=== PATIENT | male | born 1965 | race American Indian/Alaskan Native ===

== ENCOUNTER 2022-04-16 14:55 | Outpatient (CLI) | payer OTHER, SELFPAY ==
--- NOTE | 2022-04-16 16:11 | CRLHL7_ITS ---
For Patients: As a result of the Century Cures Act, medical imaging exams and procedure reports are released immediately into your electronic medical record. You may view this report before your referring provider. If you have questions, please contact your health care provider. INDICATION: Left lower quadrant abdominal pain COMPARISON: None TECHNIQUE: CT examination of the abdomen and pelvis was performed following the uneventful intravenous administration of 93 cc of Isovue 370. Thin section axial images were obtained from the lung bases through the pubic symphysis. Oral contrast was not administered. Please note that all CT scans at this facility use dose modulation, iterative reconstruction, and/or weight-based dosing when appropriate to reduce radiation dose to as low as reasonably achievable. FINDINGS: LUNG BASES: The lung bases as visualized appear normal.The heart size is normal at the lung bases. LIVER/BILIARY SYSTEM:The liver is normal in size and peripheral mixed density lesion in the right probably represents measuring 2 centimeters. This is not entirely characteristic and recommend I recommend this be confirmed by sonography of the non mass is certainly in the acute care setting. The gallbladder is contracted but otherwise unremarkable ADRENALS: Normal KIDNEYS, URETERS and BLADDER:The kidneys appear normal. No visible mass, calculus or hydronephrosis. The ureters and bladder as visualized appear normal. SPLEEN:Normal appearance. PANCREAS: Appears normal. RETROPERITONEUM and MESENTERY: There is no mass, adenopathy or aortic aneurysm. Atherosclerotic vascular calcifications GASTROINTESTINAL SYSTEM: Diverticulosis. Findings of acute uncomplicated diverticulitis at the junction of the descending colon with the sigmoid colon. PELVIS: No mass, adenopathy or free fluid.Mildly prominent prostate OSSEOUS STRUCTURES and ABDOMINAL WALL: There is an age-appropriate appearance of the osseous structures.No significant abdominal wall defect. OTHER: No free fluid or free air. IMPRESSION: 1. Acute uncomplicated diverticulitis of the descending colon at its junction with the sigmoid colon. 2. Indeterminate hepatic lesion favor a hemangioma. Recommend confirmation by sonography though not necessarily in the acute care setting. . Please note that all CT scans at this facility use dose modulation, iterative reconstruction, and/or weight-based dosing when appropriate to reduce radiation dose to as low as reasonably achievable. Dictated by Berlin Scanlon MD @ 04/16/2022 5:47:41 PM (Electronically Signed)
[2022-04-16 21:15] LABS: Basophils Percent Auto 0.7 % (0.0-3.0); Eosinophils Percent Auto 0.9 % (0.0-7.0); Hematocrit 43.6 % (37.0-53.0); Hemoglobin* 14.5 gm/dL (13.5-17.5); Immature Granulocytes Abs Auto 0.08 K/uL (0.00-0.30); Lymphocytes Percent Auto 28.1 % (20-44); Mean Corpuscular HGB Conc 33 gm/dL (32-36); Mean Corpuscular Hemoglobin 30 pg (26-34); Mean Corpuscular Volume 89 fL (80-100); Monocytes Percent Auto 7.6 % (0.0-11.0); Platelet Count* 333 K/uL (140-440); RDW Coefficient of Variation % 13.1 % (11.5-15.5); Red Blood Count 4.88 m/uL (4.30-5.90); White Blood Count* 12.29 K/uL (4.50-11.00)
[2022-04-16 21:17] LABS: Appearance Urine Clear (Clear); Bilirubin Urine Negative (Negative); Blood Urine 2+ (Negative); Color Urine Yellow (Yellow); Glucose Urine Negative (Negative); Ketones Urine Negative (Negative); Leukocyte Esterase Urine Negative (Negative); Nitrite Urine Negative (Negative); Protein Urine Negative (Negative); Specific Gravity Urine 1.025 (1.000-1.030); Urobilinogen Urine 0.2 (0.2-1.0)
[2022-04-16 21:43] LABS: Chloride* 105 mmol/L (96-114); Sodium* 138 mmol/L (135-149)
[2022-04-16 21:44] LABS: Potassium* 4.1 mmol/L (3.6-5.1)
[2022-04-16 21:46] LABS: Estimated Glomerular Filt Rate 87.24
[2022-04-16 21:47] LABS: Blood Urea Nitrogen* 20 mg/dL (7-30); Calcium* 9.7 mg/dL (8.4-10.6); Carbon Dioxide* 22 mmol/L (20-32); Glucose* 106 mg/dL (60-115)
[2022-04-16 22:23] LABS: WBC Urine 0-2 (0-5)
[2022-04-16 23:19] LABS: Slide Review Reflex No
== END 2022-04-16 14:56 | disposition home or self-care (01) ==
PROVIDERS: PCP Nurse Practitioner Family; Visit Provider Nurse Practitioner Family
DX: R10.32 Left lower quadrant pain (principal); K76.9 Liver disease, unspecified; K57.92 Diverticulitis of intestine, part unspecified, without perforation or abscess without bleeding; R07.89 Other chest pain; C85.90 Non-Hodgkin lymphoma, unspecified, unspecified site; R31.29 Other microscopic hematuria
CPT/HCPCS: 36415; 74177; 80048; 81001; 85025; 87086; Q9967

== ENCOUNTER 2022-04-19 08:06 | Outpatient (CLI) | payer OTHER, SELFPAY ==
--- NOTE | 2022-04-19 08:15 | CRLHL7_ITS ---
For Patients: As a result of the Century Cures Act, medical imaging exams and procedure reports are released immediately into your electronic medical record. You may view this report before your referring provider. If you have questions, please contact your health care provider. INDICATION: Evaluate liver lesion COMPARISON: CT 04/16/2022 TECHNIQUE: Real time eid scale imaging and color Doppler analysis was performed of the right upper quadrant. FINDINGS: The liver echotexture is heterogeneous. There is an ill-defined area of hypoechoic shadowing within the right hepatic lobe which could be artifactual related to the falciform ligament. Ill-defined areas of increased echogenicity are present within the right hepatic lobe, 1 of which corresponds to the CT finding. The larger lesion measures 1.9 x 1.7 x 1.8 cm and the smaller lesion measures 1.3 x 1.9 x 1.8 cm. A 3rd possible near isoechoic lesion is present centrally measuring 1.9 x 2.0 x 2.3 cm. There is a normal appearance of the hepatic IVC and there are atherosclerotic changes within the proximal abdominal aorta. There is no evidence of ascites. The gallbladder is of normal size and there is no evidence of intraluminal stones or sludge. The gallbladder wall measures 2 mm in thickness. The common bile duct is of normal size and measures 6 mm in diameter at the level of the marla hepatis. The pancreas appears normal. There is no evidence of a stone or hydronephrosis within the right kidney. The right kidney measures 10.5 cm in length. IMPRESSION: Three intrahepatic lesions which are indeterminate by ultrasound. Underlying chronic liver disease suggesting cirrhosis. Differential diagnosis includes atypical hemangiomas, regenerating nodules, or malignancy which cannot be excluded at this time. Dynamic liver MRI recommended. Dictated by Dl Badillo MD @ 04/19/2022 11:36:17 AM (Electronically Signed)
== END 2022-04-19 08:07 | disposition home or self-care (01) ==
PROVIDERS: PCP Nurse Practitioner Family; Visit Provider Nurse Practitioner Family
DX: K76.9 Liver disease, unspecified (principal)
CPT/HCPCS: 76705

== ENCOUNTER 2022-04-23 10:31 | Outpatient (CLI) | payer OTHER, SELFPAY ==
[2022-04-23 10:57] LABS: Appearance Urine Clear (Clear); Bilirubin Urine Negative (Negative); Blood Urine 2+ (Negative); Color Urine Yellow (Yellow); Glucose Urine Negative (Negative); Ketones Urine Negative (Negative); Leukocyte Esterase Urine Negative (Negative); Nitrite Urine Negative (Negative); Protein Urine Negative (Negative); Specific Gravity Urine <= 1.005 (1.000-1.030); Urobilinogen Urine 0.2 (0.2-1.0)
[2022-04-23 14:06] LABS: Albumin* 4.1 g/dL (3.3-5.0)
[2022-04-23 14:09] LABS: Alanine Aminotransferase* 19 U/L (4-50); Alkaline Phosphatase* 73 U/L (40-150); Aspartate Amino Transferase* 21 U/L (12-35); Bilirubin Direct* 0.4 mg/dL (0.0-0.5); Bilirubin Total* 0.5 mg/dL (0.1-1.5); Total Protein* 6.4 g/dL (6.0-8.3)
[2022-04-23 14:24] LABS: RBC Urine 0-2 (0-2); Squamous Epithelial Cell Urine Few (None-Few); WBC Urine 0-2 (0-5)
[2022-04-23 14:51] LABS: Hepatitis C Virus Antibody* Negative (Negative)
== END 2022-04-23 10:32 | disposition home or self-care (01) ==
PROVIDERS: PCP Nurse Practitioner Family; Visit Provider Nurse Practitioner Family
DX: R31.29 Other microscopic hematuria (principal); K76.9 Liver disease, unspecified
CPT/HCPCS: 36415; 80076; 81003; 81015; 86803

== ENCOUNTER 2022-05-06 07:24 | Outpatient (CLI) | payer OTHER, SELFPAY ==
--- NOTE | 2022-05-06 07:15 | MR_ITS ---
Final Report Patient: JIM MACE Facility:?[facility] Patient ID:?[id number] Site Patient ID:?[id number]. Site :?1965 Study:?MRI Abdomen W/ and W/O Cont 15 cc DOTAREM LIVER-05/06/2022 11:43:01 AM Ordering Physician:Олег Brady Final Report: INDICATION: Three small liver lesions and question of chronic liver disease on ultrasound. TECHNIQUE: Multiplanar imaging of the abdomen was performed without and with 15 cc of Dotarem contrast material IV. COMPARISON: Abdomen ultrasound of 04/19/2022. FINDINGS: The liver is grossly normal in size and shape. Three small lesions consistent with flash-filling hemangiomas are demonstrated in segments 4A and B. The segment 4A lesion measures 7 mm and the segment 5 lesions measure up to 17 mm and 9 mm. These lesions demonstrate no washout or diffusion restriction. The bile ducts are normal in caliber. The spleen, adrenal glands, kidneys and pancreas are within normal limits. No lymphadenopathy is apparent. No intrinsic bowel abnormality is evident. No free fluid is demonstrated. IMPRESSION: Three small flash-filling liver segment 4 hemangiomas, as above. Liver otherwise grossly negative. Dictated by Hamzah Kendall MD @ 05/07/2022 5:51:22 AM (Electronic Signature)
== END 2022-05-06 07:25 | disposition home or self-care (01) ==
LOC: MRI 07:25
PROVIDERS: PCP Nurse Practitioner Family; Visit Provider Nurse Practitioner Family
DX: K76.9 Liver disease, unspecified (principal)
CPT/HCPCS: 74183; A9575

== ENCOUNTER 2022-05-24 08:30 | Outpatient (CLI) | payer OTHER, SELFPAY ==
[2022-05-24 16:22] LABS: SARS PCR* Negative SARS-CoV-2 (Negative)
== END 2022-05-24 08:31 | disposition home or self-care (01) ==
LOC: KYNREF 08:30
PROVIDERS: PCP Nurse Practitioner Family; Visit Provider Nurse Practitioner Family
DX: Z20.822 Contact with and (suspected) exposure to COVID-19 (principal)
CPT/HCPCS: 87635

== ENCOUNTER 2022-05-27 07:24 | Outpatient (CLI) | payer OTHER, SELFPAY | END 2022-05-27 07:25 | disposition home or self-care (01) | LOC: OP CLINIC 07:25 | PROVIDERS: PCP Nurse Practitioner Family; Visit Provider Surgery | DX: K57.92 Diverticulitis of intestine, part unspecified, without perforation or abscess without bleeding (principal); K57.32 Diverticulitis of large intestine without perforation or abscess without bleeding; K57.30 Diverticulosis of large intestine without perforation or abscess without bleeding; K63.5 Polyp of colon | CPT/HCPCS: 45385; 88305; 99153; J2250; J3010 ==

== ENCOUNTER 2022-07-02 13:45 | Outpatient (CLI) | payer OTHER, SELFPAY ==
--- OUTSIDE RECORDS SUMMARY | 2022-07-02 13:54 | XMS_ITS | Clinical Summary ---
:1965 Author Organization [facility] Address [address] [place] [address] Care Team Providers Name Role Phone Unavailable Primary Care Provider Unavailable Source Comments Patient records contain information from all sites at [facility]. For routine questions regarding patient records, call [phone] during business hours, M-F 8:00 AM - 5:00 PM Central Time. Record requests for emergency care only can be directed to [phone] at any time.[facility] Allergies No known active allergies Medications No known medications Active Problems No known active problems Encounters Date Type Specialty Care Team Description 05/31/2022 Comprehensive Visit Urology Tian Prabhakar Microhem atclaire (Primary Dx); Sally, M.P.H. Smoking Tobacco Use Personal History 05/28/2022 Procedure visit Urology Tian Prabhakar, Hematuria Ur inalysis Sally, M.P.H. Jennifer Gamble, P.A.-C. 05/28/2022 Hospital Encounter Radiology Tian Prabhakar, Hematuria Urinalysis Sally, M.P.H. 05/28/2022 Hospital Encounter Laboratory Tian Prabhakar, Hematuria Urinalysis Medicine Sally, M.P.H. 05/28/2022 Hospital Encounter Laboratory Tian Prabhakar, Hematuria Urinalysis Medicine Sally, M.P.H. 04/26/2022 Clinical Urology Tian Prabhakar, Communication Sally, M.P.H. 04/23/2022 Community Orders Damon Aguayo (Primary Dx) C.N.P. from Last 3 Months Social History Tobacco Use Types Packs/Day Years Used Date Smoking Tobacco: Never Assessed Sex Assigned at Date Recorded Not on file Plan of Treatment Health Maintenance Due Date Last Done Comments CT Colonography 1965 Cologuard 1965 Colonoscopy 1965 Colorectal Cancer Screening 1965 FIT 1965 Fasting Glucose for Diabetes 1965 Screening HIV Screening 1965 Hepatitis C Screening 1965 Lipid (Cholesterol) Screening 1965 COVID-19 Vaccine (3 - Booster 05/08/2021 03/13/2021, for Pfizer series) 02/20/2021 Depression Screening (Annual 10/06/2021 PHQ-2) Influenza Vaccine (#1) 2022 DTaP,Tdap,and Td Vaccines (2 07/31/2022 07/31/2012, - Td or Tdap) 10/06/2004 Hepatitis B Vaccines Completed 09/19/2014, 04/15/2014, 03/18/2014 Pneumococcal vaccine (0-64 Aged Out 10/21/2019 No lo nger eligible based years) on patient's age to complete this to pic Zoster Vaccines Completed 04/04/2020, 10/21/2019 Procedures Procedure Name Priority Date/Time Associated Comments Diagnosis SD CYSTOURETHROSCOPY Routine 05/28/2022 3:41 Hematuria Resu lts for PM CDT Urinalysis this procedure are in the results section. CT UROGRAM WITHOUT AND RAD - Routine 05/28/2022 1:15 Hematuria R esults for WITH IV CONTRAST (most inpatients PM CDT Urinalysis this pr ocedure and all are in the outpatients) results section. CREATININE, POCT, B Routine 05/28/2022 Results for 12:15 PM CDT this procedure are in the results section. CREATININE, POCT, B Routine 05/28/2022 Results for 12:15 PM CDT this procedure are in the results section. DIPSTICK, U Routine 05/28/2022 Results for 11:49 AM CDT this procedure are in the results section. PH, U Routine 05/28/2022 Results for 11:49 AM CDT this procedure are in the results section. OSMOLALITY, U Routine 05/28/2022 Results for 11:49 AM CDT this procedure are in the results section. MICROSCOPIC AUTOMATED Routine 05/28/2022 Result s for 11:49 AM CDT this procedure are in the results section. URINALYSIS WITH Routine 05/28/2022 Hematuria Results for MICROSCOPIC 11:49 AM CDT Urinalysis this procedure are in the results section. CREATININE WITH EGFR, Routine 05/28/2022 Hematuria Result s for S/P 11:39 AM CDT Urinalysis this procedure are in the results section. OUTSIDE US BODY Routine 04/19/2022 8:20 Results f or AM CDT this procedure are in the results section. OUTSIDE CT BODY Routine 04/16/2022 4:25 Results f or PM CDT this procedure are in the results section. from Last 3 Months Results SD CYSTOURETHROSCOPY (05/28/2022 3:41 PM CDT) Specimen (Source) Anatomical Location Collection Method / Collectio n Time Received Time / Laterality Volume Narrative Mikayla Bill D.N.P., R.N. - 2021 3:41 PM CDT Mikayla Bill D.N.P., R.N. ? 05/28/2022 ??3:43 PM URO Cystoscopy (general) Date/Time: 05/28/2022 3:41 PM Performed by: Mikayla Bill D.N.P., R.N. Authorized by: Tian Prabhakar M.D., M.P.H. Care team members present 1. Krysta Allen 2. Mikayla Bill D.N.P., R.N. IMPRESSION ?? negative cystoscopy Additional procedures performed: cystosc opy ?? PROCEDURE DETAILS Patient presents today in evaluation of hematuria. ??He had a CT urogram today that showed no upper tract urothel ial malignancy or findings to explain hematuria. The [facility] and placed in lithotomy position. He was prepped and draped in t he standard fashion. A flexible cystoscope was inserted through the uret hra into the bladder. Urethroscopy demonstrated normal-appearing urethra mu cosa. ??Urethral sphincter coapted appropriately. ??Prostatic urethra was p atent with evidence of a high-riding bladder neck. ??Upon entranc e into the bladder, reeder cystoscopy was performed. Scant bladder wall trabec ulation. ??No suspicious erythematous or papillary bladder lesion s were noted. ??Ureteral orifices were identified in their orthotopic posi tion bilaterally. Retroflex view demonstrated minimal intravesical protru karyn of the prostate. ??Cystoscope was then removed, patient tolerated the procedure well. IMPRESSION #1 Negative cystoscopic exam for hematur ia PLAN: Has a follow-up appointment with Dr. Prabhakar later this week. Blue light imaging agent used: ??no Fluoroscopy: Fluoroscopic image guidance used to loca lize target, identify at risk structures, and dynamically used to dire ct therapy to the target. Image(s) acquired and saved. CONSENT Consent obtained: verbal Consent given by: patient [employer] All relevant documentation and testing w ere reviewed and available. All required blood products, implants, devic es and or special equipment were made available as applicable. Pre-proced ure verification was conducted and the correct site was marked if required. A fire risk assessment was done as applicable. The procedural time-out t o verify correct patient, correct side/site, and procedure was conducted p rior to performing the procedure and confirmed in a procedural pause. PRE-PROCEDURE DETAILS Procedure purpose: ??Diagnostic Tian Prabhakar M.D., M.P.H. UROLOGY ORDERABLES CT Urogram without and with IV Contrast (05/28/2022 1:15 PM CDT) Anatomical Region Laterality Modality Abdomen, Pelvis, Abdominal RST LOS, N/A Comp uted Tomography, Computed Abdominal ARZ LOS, Abdominal FLA LOS Narendra ography Specimen (Source) Anatomical Collection Method Collection Time Re ceived Time Location / / Volume Laterality 05/28/2022 1:06 PM CDT Impressions 05/28/2022 1:22 PM CDT 1. No upper tract urothelial malignancy or findings to explain hematuria. 2. Resolving diverticulitis. Narrative 05/28/2022 1:22 PM CDT EXAM: ??CT UROGRAM WITHOUT AND WITH IV CONTRAST COMPARISON: ??Outside CT 04/16/2022 FINDINGS: ?? FINDINGS: No urinary calc esa. Prompt and symmetric nephrograms. No renal mass. No suspicious filling defects within the re nal collecting systems, ureters or urinary bladder. Moderate prostate enlargement with a presumed enh ancing prostate nodule protruding into the bladder base. Other findings: Nearly completely resolv ed left sigmoid diverticulitis. Hepatic hemangioma. No suspicious hepatic masses. Negative sple en, adrenal glands and pancreas. No enlarged abdominal lymph nodes. Advanced atherosclerotic calcific ations. No suspicious skeletal lesions. Negative lung bases. Procedure Note Quin Avendaño M.D. - 05/28/2022Forma tting of this note might be different from the original. EXAM: CT UROGRAM WITHOUT AND WITH IV CON TRAST COMPARISON: Outside CT 04/16/2022 FINDINGS: FINDINGS: No urinary calcul i. Prompt and symmetric nephrograms. No renal mass. No suspicious filling defects within the re nal collecting systems, ureters or urinary bladder. Moderate prostate enlargement with a presumed enh ancing prostate nodule protruding into the bladder base. Other findings: Nearly completely resolv ed left sigmoid diverticulitis. Hepatic hemangioma. No suspicious hepatic masses. Negative sple en, adrenal glands and pancreas. No enlarged abdominal lymph nodes. Advanced atherosclerotic calcific ations. No suspicious skeletal lesions. Negative lung bases. IMPRESSION: 1. No upper tract urothelial malignancy or findings to explain hematuria. 2. Resolving diverticulitis. Tian Prabhakar M.D., M.P.H. IMG CT PROCEDURES Creatinine, POCT (05/28/2022 12:15 PM CDT)Only the most recent of2 resultswithin the time period is included. athologist Signature Creatinine, 1.1 0.7 - 1.4 05/28/2022 PCDT POCT, B mg/dL 12:18 PM CDT Comment: ----ADDITIONAL INFORMATION---- Performed at the Point of Care Specimen Anatomical Collection Method Collection Time Receive d Time (Source) Location / / Volume Laterality Blood 05/28/2022 12:15 05/28/2022 PM CDT 12:18 PM CDT Unknown Provider LAB POCT ORDERABLES - DEVICE Performing Organization Address City/State/ZIP Code Phon e Number POC [facility]DER PERFORM[facility] [address] [place] [address] LABS PCDT [facility] [place] [address] [place] [facility] [address] (ABNORMAL) Dipstick, Urine (05/28/2022 11:49 AM CDT) [facility] Method Time Signature Hemoglobin, Trace (A) Negative 05/28/2022 DTL QL, U 1:15 PM CDT Leukocyte Negative Negative 05/28/2022 DTL Esterase, U 1:15 PM CDT Nitrite, U Negative Negative 05/28/2022 DTL 1:15 PM CDT Ketone, U Negative Negative 05/28/2022 DTL mg/dL 1:15 PM CDT Glucose, U Negative Negative 05/28/2022 DTL mg/dL 1:15 PM CDT Specimen Anatomical Collection Method Collection Time Receive d Time (Source) Location / / Volume Laterality Urine 05/28/2022 11:49 05/28/2022 AM CDT 12:47 PM CDT Tian Prabhakar M.D., M.P.H. LAB URINE ORDERABLES Performing Organization Address City/State/ZIP Code Phon e Number [facility] - [address] [place], [place] [address] [place] [address] Microscopic Automated (05/28/2022 11:49 AM CDT) P athologist Signature Microscopy Normal 05/28/2022 1:15 DTL PM CDT Specimen Anatomical Collection Method Collection Time Receive d Time (Source) Location / / Volume Laterality Urine 05/28/2022 11:49 05/28/2022 AM CDT 12:47 PM CDT Tian Prabhakar M.D., M.P.H. LAB URINE ORDERABLES Performing Organization Address City/State/ZIP Code Phon e Number [facility] - [address] [place], [place] [address] [place] [address] pH, Urine (05/28/2022 11:49 AM CDT) P athologist Signature pH, U 5.4 4.5 - 8.0 05/28/2022 1:47 DTL PM CDT Specimen Anatomical Collection Method Collection Time Receive d Time (Source) Location / / Volume Laterality Urine 05/28/2022 11:49 05/28/2022 AM CDT 12:47 PM CDT Tian Prabhakar M.D., M.P.H. LAB URINE ORDERABLES Performing Organization Address City/[facility]/ZIP Code Phon e Number [facility] - [address] [place], [place] [address] [place] [address] [facility] [address] [facility] Osmolality, Urine (05/28/2022 11:49 AM CDT) P athologist Signature Osmolality, U 155 150 - 1150 05/28/2022 DTL mOsm/kg 1:47 PM CDT Specimen Anatomical Collection Method Collection Time Receive d Time (Source) Location / / Volume Laterality Urine 05/28/2022 11:49 05/28/2022 AM CDT 12:47 PM CDT Tian Prabhakar M.D., M.P.H. LAB URINE ORDERABLES Performing Organization Address City/[facility] Code Phon e Number [facility] - [address] [place], [place] [address] [place] [address] [place] [address] [facility] Urinalysis with Microscopic: Urine, Midstream (05/28/2022 11:49 AM CDT) Patholo gist Method Time Signature Source Urine, Urine, 05/28/2022 DTL Midstream 12:47 PM CDT Color, U Yellow 05/28/2022 DTL 12:47 PM CDT Clarity, U Clear 05/28/2022 DTL 12:47 PM CDT Protein, U 4 <26 mg/dL 05/28/2022 DTL 1:35 PM CDT Protein/Osmol 0.26 <0.42 05/28/2022 DTL ality ratio 1:47 PM CDT Predicted 24 259 mg/24 h 05/28/2022 DTL Hr Protein 1:47 PM CDT Predicted 82-816 mg/24 h 05/28/2022 DTL Range 1:47 PM CDT Specimen Anatomical Collection Method Collection Time Receive d Time (Source) Location / / Volume Laterality Urine (Urine, 05/28/2022 11:49 05/28/2022 Midstream) AM CDT 12:47 PM CDT Tian Prabhakar M.D., M.P.H. LAB URINE ORDERABLES Performing Organization Address City/State/ZIP Code Phon e Number [facility] - [address] [place], [place] [address] [facility] [place] [address] Creatinine with Estimated GFR (05/28/2022 11:39 AM CDT) P athologist Signature Creatinine 1.18 0.74 - 05/28/2022 DTL 1.35 mg/dL 1:07 PM CDT Estimated GFR 72 >=60 05/28/2022 DTL (eGFR) mL/min/BSA 1:07 PM CDT Comment: Estimated GFR calculated using the 2020 CKD_EPI creatinine equation. Specimen Anatomical Collection Method Collection Time Receive d Time (Source) Location / / Volume Laterality Blood (Blood, 05/28/2022 11:39 05/28/2022 Venous) AM CDT 12:39 PM CDT Tian Prabhakar M.D., M.P.H. LAB BLOOD ADD-ON Performing Organization Address City/State/ZIP Code Phon e Number [facility] - [address] [place], [place] [address] [facility] [place] [address] Laboratories-[facility] [address] [facility] US ABDOMEN LIMITED-Outside US Body (04/19/2022 8:20 AM CDT) Specimen (Source) Anatomical Location Collection Method / Collectio n Time Received Time / Laterality Volume Narrative [facility] - 04/23/2022 2:37 PM CDT This order has been created and auto-finalized to support the import of outside images. If available, original i nterpretation can be found on the Media Tab in Chart Review, in Document V iewer, or as an image in QREADS. If a re-interpretation or overread is re quired please follow defined workflow. ?? Provider Not In System IMG US PROCEDURES Performing Organization Address City/State/ZIP Code Phon e Number [facility] NA CT ABDOMEN PELVIS W CON-Outside CT Body (04/16/2022 4:25 PM CDT) Specimen (Source) Anatomical Location Collection Method / Collectio n Time Received Time / Laterality Volume Narrative [facility] - 04/23/2022 2:39 PM CDT This order has been created and auto-finalized to support the import of outside images. If available, original i nterpretation can be found on the Media Tab in Chart Review, in Document V iewer, or as an image in QREADS. If a re-interpretation or overread is re quired please follow defined workflow. ?? Provider Not In System IMG CT PROCEDURES Performing Organization Address City/State/ZIP Code Phon e Number [facility] NA from Last 3 Months Insurance Payer Benefit Plan / Subscriber ID Effective Dates Phone Addre ss Type Group [facility] CHOICE [id number] 2021-Present [address] [address] [place] [address]
--- OUTSIDE RECORDS SUMMARY | 2022-07-02 13:55 | XMS_ITS | Encounter Summary ---
:1965 Author Organization [facility] [place] Address [address] [place] [id number] Care Team Providers Name Role Phone Unavailable Primary Care Provider Unavailable Encounter Details Date Type Department Care Team Description 05/28/2022 Hospital Encounter Department of Tian Prabhakar Hematuri a Urinalysis Laboratory Medicine Sally, M.P.H. and Pathology, [address] [place] [address], in [place], [place] [id number] [place] [address] [place], [place] (Work) [phone] Social History Tobacco Use Types Packs/Day Years Used Date Smoking Tobacco: Never Assessed Sex Assigned at Date Recorded Not on file documented as of this encounter Plan of Treatment Not on filedocumented as of this encounter Procedures Procedure Name Priority Date/Time Associated Comments Diagnosis CREATININE WITH Routine 05/28/2022 11:39 AM Hematuria Resul ts for this EGFR, S/P CDT Urinalysis procedure are i n the results section. documented in this encounter Results Creatinine with Estimated GFR (05/28/2022 11:39 AM [...] Organization Address City/State/ZIP Code Phon e Number [facility] - [address] [place], [place] [address] [facility] [place] [address] Laboratories-[facility] [address] documented in this encounter Visit Diagnoses Diagnosis Hematuria Urinalysis documented in this encounter
--- OUTSIDE RECORDS SUMMARY | 2022-07-02 13:55 | XMS_ITS | Encounter Summary ---
:1965 Author Organization [facility] Address [address] [place] [address] Care Team Providers Name Role Phone Unavailable Primary Care Provider Unavailable Reason for Referral MRI/CAT/PET Scan (Routine) - Closed Specialty Diagnoses / Procedures Referred By Contact Refer red To Contact Radiology Diagnoses Hematuria Urinalysis Tian Prabhakar M.D., M.P.H. [facility] Procedures CT Urogram without and with IV Contrast [address] [place] [phone] Referral ID Status Reason Start Date Expiration Date Visits Requ ested Visits Authorized [id number] Closed 04/26/2022 04/26/2023 1 1 Reason for Visit MRI/CAT/PET Scan (Routine) - Closed Specialty Diagnoses / Procedures Referred By Contact Refer red To Contact Radiology Diagnoses Hematuria Urinalysis Tian Prabhakar M.D., M.P.H. [facility] Procedures CT Urogram without and with IV Contrast [address] [place] [phone] Referral ID Status Reason Start Date Expiration Date Visits Requ ested Visits Authorized [id number] Closed 04/26/2022 04/26/2023 1 1 Encounter Details Date Type Department Care Team Description 05/28/2022 Hospital Encounter Department of Tian Prabhakar Hematuri a Urinalysis Radiology, Dave Zavala, M.P.H. [facility], in [address] [place] [address] [place] [phone] [place], [place] [phone] (Work) [phone] Social History Tobacco Use Types Packs/Day Years Used Date Smoking Tobacco: Never Assessed Sex Assigned at Date Recorded Not on file documented as of this encounter Nursing Notes Pau Smith RYandel. - 05/28/2022 12:30 PM CDT Creatinine 1.1, GFR >30 documented in this encounter Plan of Treatment Scheduled Orders Name Type Priority Associated Diagnoses Order S chedule Creatinine, POCT Point of Care Routine Routine la b collection Testing-Docked (next collect ion) for Device 1 Occurrences s tarting 05/28/2022 unti l 05/28/2022 documented as of this encounter Procedures Procedure Name Priority Date/Time Associated Comments Diagnosis CT UROGRAM RAD - Routine 05/28/2022 1:15 Hematuria Results for this WITHOUT AND WITH (most inpatients PM CDT Urinalysis procedu re are in IV CONTRAST and all the results outpatients) section. CREATININE, POCT, Routine 05/28/2022 12:15 Result s for this B PM CDT procedure are i n the results section. CREATININE, POCT, Routine 05/28/2022 12:15 Result s for this B PM CDT procedure are i n the results section. documented in this encounter Results CT Urogram without and with IV Contrast [...] CT PROCEDURES Creatinine, POCT (05/28/2022 12:15 PM CDT) athologist Signature Creatinine, 1.1 0.7 - 1.4 [...] Address City/State/ZIP Code Phon e Number POC [facility] [address] [place] [address] LABS PCDT [facility] [place], [place] [id number] [place] [address] Creatinine, POCT (05/28/2022 12:15 PM CDT) athologist Signature Estimated GFR 78 >=60 05/28/2022 PCDT (eGFR), POCT mL/min/BSA 12:18 PM CDT Comment: Estimated GFR calculated using the 2020 CKD_EPI creatinine equation. Specimen Anatomical Collection Method Collection Time Receive d Time (Source) Location / / Volume Laterality Blood 05/28/2022 12:15 05/28/2022 PM CDT 12:18 PM CDT Unknown Provider LAB POCT ORDERABLES - DEVICE Performing Organization Address City/State/ZIP Code Phon e Number POC [facility] [address] [place] [address] LABS PCDT [facility] - [place], [place] [phone] [place] [address] documented in this encounter Visit Diagnoses Diagnosis Hematuria Urinalysis documented in this encounter Administered Medications Inactive Administered Medications - up to 3 most recent administrations Medication Order MAR Action Action Date Dose Rate Site iohexoL 350 mg iodine/mL solution Given 05/28/2022 1:14 PM CDT 1 00 mL 1-200 mL (OMNIPAQUE) 1-200 mL, intravenous, Once in imaging, contrast, Starting on Fri05/28/22 at 1203, For 1 dose, Imaging Protocol Orders, Dose per Radiant Medication Guidelines sodium chloride 0.9 % flush 1-250 mL Given 05/28/2022 1:14 PM CDT 190 mL 1-250 mL, intravenous, Once, On Fri05/28/22 at 1215, For 1 dose, Imaging Protocol Orders documented in this encounter
--- OUTSIDE RECORDS SUMMARY | 2022-07-02 13:55 | XMS_ITS | Encounter Summary ---
:1965 Author Organization [facility] Address [address] [place] [address] Care Team Providers Name Role Phone Unavailable Primary Care Provider Unavailable Reason for Visit Outpatient (Routine) - Closed Specialty Diagnoses / Procedures Referred By Contact Refer red To Contact Urology Diagnoses Microhematuria Caitlyn Aguayo C.N.P. [facility] [address] [place], [place] [address] Referral ID Status Reason Start Date Expiration Date Visits Requ ested Visits Authorized [id number] Closed 04/23/2022 04/23/2023 1 1 Encounter Details Date Type Department Care Team Description 05/31/2022 Comprehensive Visit Department of Tian Prabhakar Microhe maturia (Primary Dx); Urology in [place], M.P.H. Smoking Tobacco Use Personal History [place], [address] [place], [place] [address] [facility] [address] [place], [place] [phone] (Work) [phone] Social History Tobacco Use Types Packs/Day Years Used Date Smoking Tobacco: Never Assessed Sex Assigned at Date Recorded Not on file documented as of this encounter Consult Notes Audrey Mesa M.B., B.Ch. - 05/31/2022 9:00 AM CDT REFERRAL SOURCE The patient is being seen in consultation at the request of Caitlyn Aguayo C.N.PPete [address] [place] [address] CHIEF COMPLAINT Hematuria HISTORY OF PRESENT ILLNESS Mr. Mccauley is a 56 y.o. male who presents today for hematuria evaluation. Patient has a past medical history significant for non-hodgkin's lymphoma stage 2 in 2015 and has been in remission since then. Patient was noted to have a microscopic hematuria by his primary provider based on outside testing.Patient was referred to us for further evaluation. Patient reports extensive smoking history since age 4 years. Patient denied any history of kidney stones, recurrent UTIs, or family history of bladdercancer. Patient underwent CT urogram which was negative. Repeat urine analysis was negative and office cystoscopy revealed normal bladder mucosa with no erythematous or papillary lesions. Patient denied fever or chills. No lower urinary tract symptoms including dysuria, frequency, hematuria, or urinary incontinence. PAST MEDICAL/SURGICAL HISTORY MEDICAL There are no problems to display for this patient. History reviewed. No pertinent past medical history. SURGICAL History reviewed. No pertinent surgical history. MEDICATIONS No current outpatient medications on file. ALLERGIES No Known Allergies SOCIAL HISTORY Social History Socioeconomic History Marital status: Spouse name: Not on file Number of children: Not on file Years of education: Not on file Highest education level: Not on file Occupational History Not on file Tobacco Use Smoking status: Not on file Smokeless tobacco: Not on file Substance and Sexual Activity Alcohol use: Not on file Drug use: Not on file Sexual activity: Not on file Other Topics Concern Not on file Social History Narrative Not on file Social Determinants of Health Financial Resource Strain: Not on file Food Insecurity: Not on file Transportation Needs: Not on file Physical Activity: Not on file Stress: Not on file Social Connections: Not on file Intimate Partner Violence: Not on file Housing Stability: Not on file FAMILY HISTORY History reviewed. No pertinent family history. SYSTEMS REVIEW Additionally, a complete 10 point review of systems was conducted and was negative except for what was mentioned above in the HPI and/or endorsed on the patient survey. PHYSICAL EXAMINATION There were no vitals taken for this visit. General: NAD Mental status: AAOx3 Psychiatric: appropriate disposition HEENT: NCAT, conjugate gaze Respiratory: non-labored breathing Cardiovascular: RRR, upper extremities warm Abdomen: soft, no CVA tenderness Musculoskeletal: moves all 4 extremities Skin: no visible rashes Neurologic: intake sensation to the upper extremities LABS Lab Results Component Value Date/Time CREATININE 1.18 05/28/2022 11:39 AM No results found for: PSA MICROBIOLOGY/CULTURE DATA Microbiology Results (last 30 days) No results found for the last 720 hours. PATHOLOGY No results found for this or any previous visit (from the past 720 hour(s)). IMAGING AND TESTS CT Urogram without and with IV Contrast Result Date: 05/28/2022 Impression: 1. No upper tract urothelial malignancy or findings to explain hematuria. 2. Resolving diverticulitis. IMPRESSION/REPORT/PLAN #1 Microhematuria I had the pleasure to meet with Mr. Mccauley in the clinic today alongside Dr. Prabhakar. As part of today's evaluation, we reviewed patient's recent labs and imaging. Recent labs revealed negative urine analysis. CT urogram was negative for any filling defect. Office cystoscopy was negative for erythematousor papillary lesions. Patient had extensive smoking history. Patient was counseled on smoking hazards including, bladder cancer, lung cancer, and heart disease. Patient expressed understanding and he will consider quitting smoking. Otherwise, patient is recommended to repeat urine analysis with primary provided in a year. All questions asked were answered to the patient's apparent satisfaction. No further concerns. The patient was provided with the travel sales consultant's card and contact information for any further questions. Electronically signed by: Cristian Arita, B.Ch. 05/31/22 9:42 AM CDT Associated attestation - Tian Prabhakar M.D., M.P.H. - 06/01/2022 9:26 AM CDT I personally saw the patient on the date of the encounter. I personally interpreted and reviewed with the patient the relevant laboratory and imaging findings. I discussed the patient with the Resident/HUI and agree with the note which accurately reflects my own findings and plan. His microhematuria evaluation is unremarkable. He does have a personal smoking history. We discussedthe risks of tobacco use and strategies for cessation. He will contact us to be referred to our smoking cessation program. documented in this encounter Plan of Treatment Not on filedocumented as of this encounter Visit Diagnoses Diagnosis Microhematuria - Primary Smoking Tobacco Use Personal History documented in this encounter
--- OUTSIDE RECORDS SUMMARY | 2022-07-02 13:55 | XMS_ITS | Encounter Summary ---
:1965 Author Organization [facility] Address [address] [place] [address] Care Team Providers Name Role Phone Unavailable Primary Care Provider Unavailable Reason for Referral Outpatient (Routine) - Closed Specialty Diagnoses / Procedures Referred By Contact Refer red To Contact Urology Diagnoses Microhematuria Caitlyn Aguayo C.N.PPete [facility] [address] [place], [place] [address] Referral ID Status Reason Start Date Expiration Date Visits Requ ested Visits Authorized [id number] Closed 04/23/2022 04/23/2023 1 1 Encounter Details Date Type Department Care Team Description 04/23/2022 Community Orders Caitlyn Avendaño [facility] AND Husam CPeteN.PPete (Primary Dx) CLINICS [address] [place] [address] [phone] Social History Tobacco Use Types Packs/Day Years Used Date Smoking Tobacco: Never Assessed Sex Assigned at Date Recorded Not on file documented as of this encounter Plan of Treatment Scheduled Referrals Name Type Priority Associated Diagnoses Order S bennie Urology Referral Outpatient Referral Routine Microhematuria Ex pected: 04/23/2022 (Approximate), Expires: 07/24/2023 documented as of this encounter Visit Diagnoses Diagnosis Microhematuria - Primary documented in this encounter
--- OUTSIDE RECORDS SUMMARY | 2022-07-02 13:55 | XMS_ITS | Encounter Summary ---
:[address] [facility] Address [address] [place] [address] Care Team Providers Name Role Phone Unavailable Primary Care Provider Unavailable Encounter Details Date Type Department Care Team Description 05/28/2022 Hospital Encounter Department of Tian Prabhakar Hematuri a Urinalysis Laboratory Medicine MJose, M.P.H. and Pathology, [address] [place] [address] in [place], [place] [phone] [place] [address] [place], [place] (Work) [phone] Social History Tobacco Use Types Packs/Day Years Used Date Smoking Tobacco: Never Assessed Sex Assigned at Date Recorded Not on file documented as of this encounter Plan of Treatment Not on filedocumented as of this encounter Procedures Procedure Name Priority Date/Time Associated Comments Diagnosis DIPSTICK, U Routine 05/28/2022 11:49 Results for this AM CDT procedure are i n the results section. MICROSCOPIC AUTOMATED Routine 05/28/2022 11:49 Re sults for this AM CDT procedure are i n the results section. PH, U Routine 05/28/2022 11:49 Results for this AM CDT procedure are i n the results section. OSMOLALITY, U Routine 05/28/2022 11:49 Results fo r this AM CDT procedure are i n the results section. URINALYSIS WITH Routine 05/28/2022 11:49 Hematuria Results for this MICROSCOPIC AM CDT Urinalysis procedure are i n the results section. documented in this encounter Results (ABNORMAL) Dipstick, Urine (05/28/2022 11:49 AM CDT) [facility] Method Time Signature Hemoglobin, Trace (A) Negative [...] M.P.H. LAB URINE ORDERABLES Performing Organization Address City/[facility]/ZIP Code Phon e Number [facility] - [address] pH, Urine (05/28/2022 11:49 AM CDT) P athologist Signature pH, U 5.4 4.5 - 8.0 05/28/2022 1:47 DTL PM CDT Specimen Anatomical Collection Method Collection Time Receive d Time (Source) Location / / Volume Laterality Urine 05/28/2022 11:49 05/28/2022 AM CDT 12:47 PM CDT Tian Prabhakar M.D., M.P.H. LAB URINE ORDERABLES Performing Organization Address City/[facility]/ZIP Code Phon e Number [facility] [address] Osmolality, Urine (05/28/2022 11:49 AM CDT) P athologist Signature Osmolality, U 155 150 - 1150 05/28/2022 DTL mOsm/kg 1:47 PM CDT Specimen Anatomical Collection Method Collection Time Receive d Time (Source) Location / / Volume Laterality Urine 05/28/2022 11:49 05/28/2022 AM CDT 12:47 PM CDT Tian Prabhakar M.D., M.P.H. LAB URINE ORDERABLES Performing Organization Address City/State/ZIP Code Phon e Number [facility] - 200 [place], [place] [address] [place] [address] Microscopic Automated (05/28/2022 11:49 AM CDT) P athologist Signature Microscopy Normal 05/28/2022 1:15 DTL PM CDT Specimen Anatomical Collection Method Collection Time Receive d Time (Source) Location / / Volume Laterality Urine 05/28/2022 11:49 05/28/2022 AM CDT 12:47 PM CDT Tian Prabhakar M.D., M.P.H. LAB URINE ORDERABLES Performing Organization Address City/[facility]/ZIP Code Phon e Number [facility] - [address] Urinalysis with Microscopic: Urine, Midstream (05/28/2022 11:49 [...] M.P.H. LAB URINE ORDERABLES Performing Organization Address City/[facility]/ZIP Code Phon e Number [facility] - [address] [place] [address] [facility] [address] documented in this encounter Visit Diagnoses Diagnosis Hematuria Urinalysis documented in this encounter
--- OUTSIDE RECORDS SUMMARY | 2022-07-02 13:55 | XMS_ITS | Encounter Summary ---
:1965 Author Organization [facility] Address [address] [place] [address] Care Team Providers Name Role Phone Unavailable Primary Care Provider Unavailable Reason for Referral Outpatient (Routine) - Closed Specialty Diagnoses / Procedures Referred By Contact Refer red To Contact Diagnoses Hematuria Urinalysis Tian Prabhakar M.D., M.P.H. [facility] Procedures URO Cystoscopy (general) [address] [place] [phone] Referral ID Status Reason Start Date Expiration Date Visits Requ ested Visits Authorized [id number] Closed 04/26/2022 04/26/2023 1 1 MRI/CAT/PET Scan (Routine) - Closed Specialty Diagnoses / Procedures Referred By Contact Refer red To Contact Radiology Diagnoses Hematuria Urinalysis Tian Prabhakar M.D., M.P.H. [facility] Procedures CT Urogram without and with IV Contrast [address] [place], [place] [phone] Referral ID Status Reason Start Date Expiration Date Visits Requ ested Visits Authorized [id number] Closed 04/26/2022 04/26/2023 1 1 Encounter Details Date Type Department Care Team Description 04/26/2022 Clinical Communication Department of Urology Darnell Prabhakar in [facility] salvatore Zavala, M.P.H. [address] [facility] [address] [place] [phone] Social History Tobacco Use Types Packs/Day Years Used Date Smoking Tobacco: Never Assessed Sex Assigned at Date Recorded Not on file documented as of this encounter Plan of Treatment Not on filedocumented as of this encounter Results [place] CYSTOURETHROSCOPY (05/28/2022 3:41 PM CDT) Specimen (Source) [...] 1. Krysta Allen 2. Mikayla Bill D.N.P., R.NPete IMPRESSION ?? negative cystoscopy Additional procedures performed: cystosc opy ?? PROCEDURE DETAILS Patient presents today in evaluation of hematuria. ??He had a CT urogram today that showed no upper tract urothel ial malignancy or findings to explain hematuria. The patient was brought to cystoscopy [facility] and placed in lithotomy position. He was [...] Tian Prabhakar M.D., M.P.H. IMG CT PROCEDURES Urinalysis with Microscopic: Urine, Midstream (05/28/2022 11:49 AM CDT) [facility] gist Method Time Signature Source Urine, Urine, [...] Organization Address City/State/ZIP Code Phon e Number [facility] - [address] [place], [place] [address] [facility] [place] [address] [facility] [address] Creatinine with Estimated GFR (05/28/2022 11:39 [...] Organization Address City/State/ZIP Code Phon e Number [facility] - [address] [place], [place] [address] [facility] [place] [address] [facility] [address] documented in this encounter Visit Diagnoses Diagnosis Hematuria Urinalysis - Primary Hematuria Urinalysis Hematuria Urinalysis documented in this encounter
--- OUTSIDE RECORDS SUMMARY | 2022-07-02 13:55 | XMS_ITS | Encounter Summary ---
:1965 Author Organization [facility] Address [address] [place] [address] Care Team Providers Name Role Phone Unavailable Primary Care Provider Unavailable Reason for Visit Outpatient (Routine) - Closed Specialty Diagnoses / Procedures Referred By Contact Refer red To Contact Diagnoses Hematuria Urinalysis Tian Prabhakar M.D., M.P.H. [facility] Procedures URO Cystoscopy (general) [address] [place] [phone] Referral ID Status Reason Start Date Expiration Date Visits Requ ested Visits Authorized [id number] Closed 04/26/2022 04/26/2023 1 1 Encounter Details Date Type Department Care Team Description 05/28/2022 Procedure visit Department of Tian Prabhakar M.D. , M.P.H. [address] [place] [phone] Hematuria Urinalysis Urology in Jennifer Gamble P.A.-C. [address] [place] [phone] [place], [place] [address] [place] [phone] Social History Tobacco Use Types Packs/Day Years Used Date Smoking Tobacco: Never Assessed Sex Assigned at Date Recorded Not on file documented as of this encounter Progress Notes Krysta Allen - 05/28/2022 3:30 PM CDT Patient was seen for a cystoscopy procedure. Cystoscope CYF- #[id number] was used during today's cystoscopy procedure. Accessories used: cystoscope reusable (sterilized) stop cock Load number from processing via [employer]: [id number] documented in this encounter Procedure Notes Mikayla Bill D.N.P., R.N. - 05/28/2022 3:30 PM CDTAssociated Order(s): URO Cystoscopy (general) Pre-Procedure Diagnose(s): Hematuria Urinalysis Post-Procedure Diagnose(s): Hematuria Urinalysis URO Cystoscopy (general) Date/Time: 05/28/2022 3:41 PM Performed by: Mikayla Bill D.N.P., RKimberlyn Authorized by: Tian Prabhakar M.D., M.P.H. Care team members present 1. Krysta Allen 2. Mikayla Bill D.N.P., RPeteN. IMPRESSION negative cystoscopy Additional procedures performed: cystoscopy PROCEDURE DETAILS Patient presents today in evaluation of hematuria. He had a CT urogram today that showed no upper tract urothelial malignancy or findings to explain hematuria. The patient was brought to cystoscopy suite and placed in lithotomy position. He was prepped and draped in the standard fashion. A flexible cystoscope was inserted through the urethra into the bladder.Urethroscopy demonstrated normal- appearing urethra mucosa. Urethral sphincter coapted appropriately.Prostatic urethra was patent with evidence of a high-riding bladder neck. Upon entrance into the bladder, reeder cystoscopy was performed. Scant bladder wall trabeculation. No suspicious erythematous or papillary bladder lesions were noted. Ureteral orifices were identified in their orthotopic position bi laterally. Retroflex view demonstrated minimal intravesical protrusion of the prostate. Cystoscope was then removed, patient tolerated the procedure well. IMPRESSION #1 Negative cystoscopic exam for hematuria PLAN: Has a follow-up appointment with Dr. Prabhakar later this week. Blue light imaging agent used: no Fluoroscopy: Fluoroscopic image guidance used to localize target, identify at risk structures, and dynamically used to direct therapy to the target. Image(s) acquired and saved. CONSENT Consent obtained: verbal Consent given by: patient [employer] All relevant documentation and testing were reviewed and available. All required blood products, implants, devices and or special equipment were made available as applicable. Pre-procedure verificationwas conducted and the correct site was marked if required. A fire risk assessment was done as applicable. The procedural time-out to verify correct patient, correct side/site, and procedure was conducted prior to performing the procedure and confirmed in a procedural pause. PRE-PROCEDURE DETAILS Procedure purpose: Diagnostic documented in this encounter Plan of Treatment Not on filedocumented as of this encounter Procedures Procedure Name Priority Date/Time Associated Comments Diagnosis VT CYSTOURETHROSCOPY Routine 05/28/2022 3:41 PM Hematuria R esults for this CDT Urinalysis procedure are i n the results section. documented in this encounter Results VT CYSTOURETHROSCOPY (05/28/2022 3:41 PM CDT) Specimen (Source) Anatomical Location Collection Method / Collectio n Time Received Time / Laterality Volume Narrative Mikayla Bill D.N.P., R.N. - 2021 3:41 PM CDT Mikayla Bill D.N.P., R.Ezra. ? 05/28/2022 ??3:43 PM URO Cystoscopy (general) [...] hematuria. The patient was brought to cystoscopy tyson ite and placed in lithotomy position. He was [...] ??Diagnostic Tian Prabhakar M.D., M.P.H. UROLOGY ORDERABLES documented in this encounter Visit Diagnoses Diagnosis Hematuria Urinalysis documented in this encounter
[2022-07-02 21:53] LABS: Cholesterol* 233 mg/dL (90-199); HDL Cholesterol* 55 mg/dL (>=40); LDL Cholesterol Calculated 127 mg/dL (<100); Triglycerides* 255 mg/dL (40-149)
== END 2022-07-02 13:46 | disposition home or self-care (01) ==
PROVIDERS: PCP Nurse Practitioner Family; Visit Provider Nurse Practitioner Family
DX: Z00.00 Encounter for general adult medical examination without abnormal findings (principal); I10 Essential (primary) hypertension; Z12.5 Encounter for screening for malignant neoplasm of prostate; Z13.6 Encounter for screening for cardiovascular disorders
CPT/HCPCS: 36415; 80061; 84153

== ENCOUNTER 2022-09-05 08:35 | Outpatient (CLI) | payer OTHER, SELFPAY ==
--- OUTSIDE RECORDS SUMMARY | 2022-09-05 08:38 | XMS_ITS | Encounter Summary ---
:1965 Author Organization [facility] Address [address] [place] [address] Care Team Providers Name Role Phone Unavailable Primary Care Provider Unavailable Encounter Details Date Type Department Care Team Description 05/28/2022 Hospital Encounter Department of Tian Prabhakar Hematuri a Urinalysis Laboratory Medicine MJose, M.P.H. and Pathology, [address] [place] [address], in [place], [place] [address] [place] [address] [place], [place] (Work) [phone] Social History Tobacco Use [...] (ABNORMAL) Dipstick, Urine (05/28/2022 11:49 AM CDT) [facility] Method Time Signature Hemoglobin, Trace (A) Negative [...] M.P.H. LAB URINE ORDERABLES Performing Organization Address City/[facility]/ZIP Code Phon e Number [facility] - [address] [place] [address] pH, Urine (05/28/2022 11:49 AM CDT) P athologist Signature pH, U 5.4 4.5 - 8.0 05/28/2022 1:47 DTL PM CDT Specimen Anatomical Collection Method Collection Time Receive d Time (Source) Location / / Volume Laterality Urine 05/28/2022 11:49 05/28/2022 AM CDT 12:47 PM CDT Tian Prabhakar M.D., M.P.H. LAB URINE ORDERABLES Performing Organization Address City/[facility]/ZIP Code Phon e Number [facility] - [address] Osmolality, Urine (05/28/2022 11:49 AM CDT) P athologist Signature Osmolality, U 155 150 - 1150 05/28/2022 DTL mOsm/kg 1:47 PM CDT Specimen Anatomical Collection Method Collection Time Receive d Time (Source) Location / / Volume Laterality Urine 05/28/2022 11:49 05/28/2022 AM CDT 12:47 PM CDT Tian Prabhakar M.D., M.P.H. LAB URINE ORDERABLES Performing Organization Address City/[facility]/ZIP Code Phon e Number [facility] - [address] Microscopic Automated (05/28/2022 11:49 AM CDT) P athologist Signature Microscopy Normal 05/28/2022 1:15 DTL PM CDT Specimen Anatomical Collection Method Collection Time Receive d Time (Source) Location / / Volume Laterality Urine 05/28/2022 11:49 05/28/2022 AM CDT 12:47 PM CDT Tian Prabhakar M.D., M.P.H. LAB URINE ORDERABLES Performing Organization Address City/[facility] Phon e Number [facility] - [address] Urinalysis with Microscopic: Urine, Midstream (05/28/2022 [...] M.P.H. LAB URINE ORDERABLES Performing Organization Address City/[facility]/ZIP Code Phon e Number [facility] - 200 [place] [address] Laboratories-[facility] [address] documented in this encounter Visit Diagnoses Diagnosis Hematuria Urinalysis documented in this encounter
--- OUTSIDE RECORDS SUMMARY | 2022-09-05 08:38 | XMS_ITS | Encounter Summary ---
:1965 Author Organization [facility] Address [address] [place] [address] Care Team Providers Name Role Phone Unavailable Primary Care Provider Unavailable Reason for Visit Outpatient (Routine) - Closed Specialty Diagnoses / Procedures Referred By Contact Refer red To Contact Urology Diagnoses Microhematuria Caitlyn Aguayo C.N.P. [facility] [address] [place], [place] [address] Referral ID Status Reason Start Date Expiration Date Visits Requ ested Visits Authorized [id number] Closed 04/23/2022 04/23/2023 1 1 Encounter Details Date Type Department Care Team Description 05/31/2022 Comprehensive Visit Department of Tian Prabhakar Microhe maturia (Primary Dx); Urology in Sally, M.P.H. Smoking Tobacco Use Personal History [place], [address] [place], [place] [address] [facility] [address] [place], [place] [phone] (Work) [phone] Social History Tobacco Use Types Packs/Day Years Used Date Smoking Tobacco: Never Assessed Sex Assigned at Date Recorded Not on file documented as of this encounter Consult Notes Audrey Mesa M.B., B.Ch. - 05/31/2022 9:00 AM CDT REFERRAL SOURCE The patient is being seen in consultation at the request of Caitlyn Aguayo C.N.PPete [address] [place] [address] CHIEF COMPLAINT Hematuria HISTORY OF PRESENT ILLNESS [...] concerns. The patient was provided with the linux consultant's card and contact information for any [...]
--- OUTSIDE RECORDS SUMMARY | 2022-09-05 08:38 | XMS_ITS | Clinical Summary ---
:1965 Author Organization [facility] [place] [address] Care Team Providers Name Role Phone Caitlyn Aguayo NP Primary Care Provider [facility] Unavailable Unavailable Allergies No known active allergies Medications Medication Sig Dispensed Refills Start Date End Date Status losartan (COZAAR) 25 mg TAKE 1 TABLET BY 30 tablet 0 7 Active tabletIndications: MOUTH EVERY DAY Hypertension Active Problems Problem Noted Date Seasonal allergies 07/02/2013 Osteoarthritis of right knee 08/06/2012 Patellar tendinitis, right 08/06/2012 Tobacco abuse Overview: 1/2 ppd Back pain Overview: sees chiropracter Hyperlipidemia Elevated BP Alcoholism Hodgkin's lymphoma Hodgkin's lymphoma Overview: radiation to neck Hypertension Encounters Date Type Specialty Care Team Description 07/16/2022 Transcribe Orders Anabella Zavala PA 07/16/2022 Transcribe Orders Anabella Zavala PA from Last 3 Months Immunizations Name Administration Dates Next Due Hepatitis B (Adult) 09/19/2014, 04/15/2014, 03/18/2014 Td (Age >=7 Years) 10/06/2004 Tdap 07/31/2012 Family History Medical History Relation Name Comments Alcoholism Father Heart Disease Father PR Hyperlipidemia Father Hypertension Father Diabetes Maternal Uncle Diabetes Mother Hyperlipidemia Mother Hypertension Mother Heart Disease Paternal Grandfather PR Alcoholism Sister 1 Psychiatric illness Sister 1 depression Psychiatric illness Sister 2 depression Relation Name Status Comments Father Maternal Uncle Mother Paternal Grandfather Sister 1 Sister 2 Social History Tobacco Use Types Packs/Day Years Used Date Current Some Day Smoker Cigarettes 0.1 40 Smokeless Tobacco: Never Used Tobacco Cessation: Ready to Quit: Yes; C ounseling Given: Yes Comments: Has cut down to 1/day Alcohol Use Standard Drinks/Week Comments Yes 6 (1 standard drink = 0.6 oz pure alcoho l) 10/20 Alcohol Habits Answer Date Recorded How often do you have a drink containing alcohol? Not asked How many drinks containing alcohol do you have on a typical Not asked day when you are drinking? How often do you have six or more drinks on one occasion? No t asked Comment: 10/2010/31/2014 Sex Assigned at Date Recorded Not on file Obstetrics History Last Filed Vital Signs Vital Sign Reading Time Taken Comments Blood Pressure 132/84 01/25/2016 4:36 PM CDT Pulse 68 01/25/2016 4:33 PM CDT Temperature 37.2 ??C (99 ??F) 01/25/2016 4:33 PM CDT Respiratory Rate 16 08/16/2014 9:03 AM DRUG AND ALCOHOL TREATMENT SPECIALIST Oxygen Saturation 97% 10/31/2014 4:16 PM DRUG AND ALCOHOL TREATMENT SPECIALIST Inhaled Oxygen Concentration - - Weight 92.3 kg (203 lb 6.4 oz) 01/25/2016 4:33 PM CDT Height 169.2 cm (5' 6.61) 01/25/2016 4:33 PM CDT Body Mass Index 32.23 01/25/2016 4:33 PM CDT Plan of Treatment Upcoming Encounters Date Type Specialty Care Team Description 09/13/2022 Appointment Donna Romero, PT [address] [place], [place] [address] (Wo rk) 09/16/2022 Appointment Donna Romero, PT [address] [place], [place] [address] (Wo rk) 09/23/2022 Appointment Donna Romero, PT [address] [place], [place] [address] (Wo rk) Health Maintenance Due Date Last Done Comments Zoster (shingles) series for age 1209/27/2013 50+ (1 of 2) Depression screening for age 12+ 01/16/2017 01/17/2016 BMI (ht and wt on same day) for 01/24/2017 01/25/2016, 01/04 age 18+ Lipids for age 45-75 01/24/2021 01/25/2016, 08/16/2014, 07/02/2013, Additional history exists COVID-19 vaccine series (3 - 05/08/2021 03/13/2021, 021 Booster for Pfizer series) Influenza for age 50-64 06/06/2022 Tetanus booster 07/31/2022 07/31/2012, 10/06/2004 Colonoscopy through age 75 11/02/2023 11/02/2013, 4 Tdap Completed 07/31/2012 HIV for age 15-65 Completed 10/31/2014, 04/29/2014, 03/18/2014 Hepatitis C screening for age Completed 10/31/2014, 2013, 18-79 04/29/2014, Additional history exists Results Not on filefrom Last 3 Months Insurance Payer Benefit Plan Subscriber ID Effective Dates Phone Address Type / Group [employer] WORK[employer] [id number] 2008-Prese [phone] [address] [place] [address] [employer] WORKERS WC WORKERS [id number] 2014-Prese [phone] [address] [place] [address] HEALTH [id number] 2012-Presen [address] [place] [address] (Home) JOSE L[place]MAN [phone] (Work) Edd Mccauley Workers Comp Self [address] (Home) [place] [phone] (Work) Care Teams Applications Sales Representative Relationship Specialty Start Date End Date Caitlyn Aguayo, GUIDE RAIL CLEANER PCP - General Emergency Medicine 09/04/[address] [place] [address] [facility] 09/04/22
--- OUTSIDE RECORDS SUMMARY | 2022-09-05 08:39 | XMS_ITS | Encounter Summary ---
:1965 Author Organization [facility] Address [address] [place] [address] Care Team Providers Name Role Phone Unavailable Primary Care Provider Unavailable Reason for Visit Outpatient (Routine) - Closed Specialty Diagnoses / Procedures Referred By Contact Refer red To Contact Diagnoses Hematuria Urinalysis Tian Prabhakar M.D., M.P.H. [facility] Procedures URO Cystoscopy (general) [address] [place] [phone] Referral ID Status Reason Start Date Expiration Date Visits Requ ested Visits Authorized [id number] Closed 04/26/2022 04/26/2023 1 1 Encounter Details Date Type Department Care Team Description 05/28/2022 Procedure visit Department of Tian Prbahakar M.D. , M.P.H. [address] [place] [phone] Hematuria Urinalysis Urology in Jennifer Gamble P.A.-C. [address] [place] [phone] [place], [place] [address] [place] [phone] Social History Tobacco Use Types Packs/Day Years Used Date Smoking Tobacco: Never Assessed Sex Assigned at Date Recorded Not on file documented as of this encounter Progress Notes Krysta Allen - 05/28/2022 3:30 PM CDT Patient was seen for a cystoscopy procedure. Cystoscope CYF- #[id number] was used during today's cystoscopy procedure. Accessories used: cystoscope reusable (sterilized) stop cock Load number from processing via [employer]: [id number] documented in this encounter Procedure Notes Mikayla Bill D.N.P., R.N. - 05/28/2022 3:30 PM CDTAssociated Order(s): URO Cystoscopy (general) Pre-Procedure Diagnose(s): Hematuria Urinalysis Post-Procedure Diagnose(s): Hematuria Urinalysis URO Cystoscopy (general) Date/Time: 05/28/2022 3:41 PM Performed by: Mikayla Bill D.N.P., RPeteN. Authorized by: Tian Prabhakar M.D., M.P.H. Care team members present 1. Krysta Allen 2. Mikayla Bill D.N.P., R.NPete IMPRESSION negative cystoscopy Additional procedures performed: cystoscopy [...] Procedure Name Priority Date/Time Associated Comments Diagnosis AL CYSTOURETHROSCOPY Routine 05/28/2022 3:41 PM Hematuria R esults for this CDT Urinalysis procedure are i n the results section. documented in this encounter Results AL CYSTOURETHROSCOPY (05/28/2022 3:41 PM CDT) Specimen (Source) [...]
--- OUTSIDE RECORDS SUMMARY | 2022-09-05 08:39 | XMS_ITS | Encounter Summary ---
:1965 Author Organization [facility] Address [address] [place] [address] Care Team Providers Name Role Phone Unavailable Primary Care Provider Unavailable Reason for Referral Outpatient (Routine) - Closed Specialty Diagnoses / Procedures Referred By Contact Refer red To Contact Urology Diagnoses Microhematuria Caitlyn Aguayo C.N.P. [facility] [address] [place], [place] [address] Referral ID Status Reason Start Date Expiration Date Visits Requ ested Visits Authorized [id number] Closed 04/23/2022 04/23/2023 1 1 Encounter Details Date Type Department Care Team Description 04/23/2022 Community [facility] Caitlyn Aguayo [facility] AND [facility] CPeteN.PPete (Primary Dx) CLINICS [address] [place] [address] [phone] Social History Tobacco Use Types Packs/Day Years [...]
--- OUTSIDE RECORDS SUMMARY | 2022-09-05 08:39 | XMS_ITS | Encounter Summary ---
:1965 Author Organization [facility] Address [address] [place] [address] Care Team Providers Name Role Phone Unavailable Primary Care Provider Unavailable Reason for Referral Outpatient (Routine) - Closed Specialty Diagnoses / Procedures Referred By Contact Refer red To Contact Diagnoses Hematuria Urinalysis Tian Prabhakar M.D., M.P.H. [facility] Procedures URO Cystoscopy (general) [address] [place], [place] [address] Referral ID Status Reason Start Date Expiration Date Visits Requ ested Visits Authorized [id number] Closed 04/26/2022 04/26/2023 1 1 MRI/CAT/PET Scan (Routine) - Closed Specialty Diagnoses / Procedures Referred By Contact Refer red To Contact Radiology Diagnoses Hematuria Urinalysis Tian Prabhakar M.D., M.P.H. [facility] Procedures CT Urogram without and with IV Contrast [address] [place], [place] [address] Referral ID Status Reason Start Date Expiration Date Visits Requ ested Visits Authorized [id number] Closed 04/26/2022 04/26/2023 1 1 Encounter Details Date Type Department Care Team Description 04/26/2022 Clinical Communication Department of Urology Darnell Prabhakar, in [facility] salvatore Zavala, M.P.H. [address] [facility] [address] [place] [phone] [phone] Social History Tobacco Use Types Packs/Day Years Used Date Smoking Tobacco: Never Assessed Sex Assigned at Date Recorded Not on file documented as of this encounter Plan of Treatment Not on filedocumented as of this encounter Results AR CYSTOURETHROSCOPY (05/28/2022 3:41 PM CDT) Specimen (Source) [...] hematuria. The patient was brought to cystoscopy [facility] and placed in lithotomy position. He was prepped and draped in t standard fashion. A flexible cystoscope was inserted [...] Microscopic: Urine, Midstream (05/28/2022 11:49 AM CDT) [facility] gist Method Time Signature Source Urine, Urine, [...] Address City/State/ZIP Code Phon e Number [facility] - [address] [place], [place] [address] [facility] [place] [address] Laboratories-[facility] [address] Creatinine with Estimated GFR (05/28/2022 11:39 AM [...] Address City/State/ZIP Code Phon e Number [facility] - [address] [place], [place] [address] [facility] [place] [address] [facility] [address] documented in this encounter Visit Diagnoses Diagnosis Hematuria Urinalysis - Primary Hematuria Urinalysis Hematuria Urinalysis documented in this encounter
--- OUTSIDE RECORDS SUMMARY | 2022-09-05 08:39 | XMS_ITS | Encounter Summary ---
:1965 Author Organization [facility] Address [address] [place] [address] Care Team Providers Name Role Phone Unavailable Primary Care Provider Unavailable Encounter Details Date Type Department Care Team Description 05/28/2022 Hospital Encounter Department of Tian Prabhakar Hematuri a Urinalysis Laboratory Medicine Sally, M.P.H. and Pathology, [address] [place] [address], in [place], [place] [address] [place] [address] [place], [place] (Work) [phone] Social History Tobacco Use [...] Organization Address City/State/ZIP Code Phon e Number [facility] - [address] [place], [place] [address] [facility] [place] [address] Laboratories-[facility] [address] documented in this encounter Visit Diagnoses Diagnosis Hematuria Urinalysis documented in this encounter
--- OUTSIDE RECORDS SUMMARY | 2022-09-05 08:39 | XMS_ITS | Encounter Summary ---
:1965 Author Organization [facility] Address [address] [place] [address] Care Team Providers Name Role Phone Unavailable Primary Care Provider Unavailable Reason for Referral MRI/CAT/PET Scan (Routine) - Closed Specialty Diagnoses / Procedures Referred By Contact Refer red To Contact Radiology Diagnoses Hematuria Urinalysis Tian Prabhakar M.D., M.P.H. [facility] Procedures CT Urogram without and with IV Contrast [address] [place] [address] Referral ID Status Reason Start Date Expiration Date Visits Requ ested Visits Authorized [id number] Closed 04/26/2022 04/26/2023 1 1 Reason for Visit MRI/CAT/PET Scan (Routine) - Closed Specialty Diagnoses / Procedures Referred By Contact Refer red To Contact Radiology Diagnoses Hematuria Urinalysis Tian Prabhakar M.D., M.P.H. [facility] Procedures CT Urogram without and with IV Contrast [address] [place] [phone] Referral ID Status Reason Start Date Expiration Date Visits Requ ested Visits Authorized [id number] Closed 04/26/2022 04/26/2023 1 1 Encounter Details Date Type Department Care Team Description 05/28/2022 Hospital Encounter Department of Tian Prabhakar Hematuri a Urinalysis Radiology, Dave Zavala, M.P.H. [facility], in [address] [place], [place] [address] [place] [address] [place], [place] [phone] (Work) [phone] Social History Tobacco Use Types Packs/Day Years Used Date Smoking Tobacco: Never Assessed Sex Assigned at Date Recorded Not on file documented as of this encounter Nursing Notes Pau Smith RPeteN. - 05/28/2022 12:30 PM CDT Creatinine 1.1, [...] PROCEDURES Creatinine, POCT (05/28/2022 12:15 PM CDT) P athologist Signature Creatinine, 1.1 0.7 - 1.4 [...] Address City/State/ZIP Code Phon e Number [facility] [address] [place] [address] LABS PCDT [facility] [place] [address] [place] [facility] [address] Creatinine, POCT (05/28/2022 12:15 PM CDT) P athologist Signature Estimated GFR 78 >=60 05/28/2022 [...] Address City/State/ZIP Code Phon e Number [facility] [address] [place] [address] LABS PCDT [facility] Laboratories - [place], [place] [phone] [place] [address] documented in [...]
[2022-09-05 15:01] LABS: Basophils Absolute Auto 0.07 K/uL (0.00-0.30); Basophils Percent Auto 0.7 % (0.0-3.0); Eosinophils Absolute Auto 0.11 K/uL (0.00-0.50); Hematocrit 47.3 % (37.0-53.0); Hemoglobin* 15.6 gm/dL (13.5-17.5); Immature Granulocytes Abs Auto 0.14 K/uL (0.00-0.30); Immature Granulocytes Pct Auto 1.3 %; Lymphocytes Absolute Auto 2.95 K/uL (0.90-2.90); Lymphocytes Percent Auto 27.8 % (20-44); Mean Corpuscular HGB Conc 33 gm/dL (32-36); Mean Corpuscular Hemoglobin 30 pg (26-34); Mean Corpuscular Volume 90 fL (80-100); Monocytes Percent Auto 7.6 % (0.0-11.0); Neutrophils Absolute Auto 6.54 K/uL (1.7-7.0); Neutrophils Percent Auto 61.6 % (42.0-72.0); Platelet Count* 342 K/uL (140-440); RDW Coefficient of Variation % 13.3 % (11.5-15.5); Red Blood Count 5.26 m/uL (4.30-5.90); White Blood Count* 10.62 K/uL (4.50-11.00)
[2022-09-05 15:07] LABS: Slide Review Reflex No
[2022-09-05 15:14] LABS: Chloride* 106 mmol/L (96-114); Potassium* 4.9 mmol/L (3.6-5.1)
[2022-09-05 15:17] LABS: Blood Urea Nitrogen* 21 mg/dL (7-30); Carbon Dioxide* 25 mmol/L (20-32); Creatinine* 1.1 mg/dL (0.5-1.5); Estimated Glomerular Filt Rate 78 ml/min; Glucose* 97 mg/dL (60-115)
[2022-09-05 15:18] LABS: Calcium* 10.1 mg/dL (8.4-10.6)
[2022-09-05 15:30] LABS: Sodium* 141 mmol/L (135-149)
[2022-09-05 15:51] LABS: SARS PCR* Negative SARS-CoV-2 (Negative)
== END 2022-09-05 08:36 | disposition home or self-care (01) ==
PROVIDERS: PCP Nurse Practitioner Family; Visit Provider Nurse Practitioner Family
DX: Z01.818 Encounter for other preprocedural examination (principal); Z86.16 Personal history of COVID-19; Z20.822 Contact with and (suspected) exposure to COVID-19
CPT/HCPCS: 80048; 85025; 87635

== ENCOUNTER 2022-09-10 07:11 | Day surgery (SDC) | payer OTHER, SELFPAY ==
[2022-09-09] MEDS: fentaNYL 100 MCG/2 ML inj IVP (09:48)
[2022-09-09] MEDS: MIDAZOLAM HCL 1 MG/ML inj IVP (09:48)
[2022-09-09] MEDS: LACTATED RINGERS 1000 ML 1,000 ML 100 ML IV (10:00)
[2022-09-10] VITALS (19 sets, daily range): BP systolic 99–159; BP diastolic 50–90; PULSE 45–82; RESP 14–18; TEMP 36.2–36.8; O2SAT 93–99; BMI 30.7
[2022-09-10] MEDS: CELECOXIB 200 MG CAPSULE PO ×2 (06:25→20:58)
[2022-09-10] MEDS: OXYCODONE (CR) 10 MG TAB.ER.12H PO (06:25)
[2022-09-10] MEDS: ACETAMINOPHEN 500 MG TABLET 1000 MG PO ×3 (06:25→20:59)
[2022-09-10] MEDS: CEFAZOLIN 2 GM INJ IVP (08:42)
[2022-09-10] MEDS: TRANEXAMIC ACID 100 MG/ML INJ 1000 MG IV ×2 (08:45→10:40)
--- NOTE | 2022-09-10 09:45 | CRLHL7_ITS ---
For Patients: As a result of the Cures Act, medical imaging exams and procedure reports are released immediately into your electronic medical record. You may view this report before your referring provider. If you have questions, please contact your health care provider. Indication: POST OP RIGHT TKA Technique: Two views right knee Findings/Impression: Hardware from a right total knee arthroplasty is in satisfactory position. Bone alignment is normal. No sign of acute fracture. Postop changes are within normal limits. Dictated by Dl Badillo MD @ 09/10/2022 11:04:15 AM (Electronically Signed)
--- NOTE | 2022-09-10 09:47 | P.ORPRC_ITS ---
Procedure Note Date of procedure: 09/10/22 Procedure: PREOPERATIVE DIAGNOSIS: Right knee osteoarthritis POSTOPERATIVE DIAGNOSIS: Right knee osteoarthritis NAME OF OPERATION: Right total knee arthroplasty SURGEON: Nik Whipple MD SHIRT TURNER: Bess Guevara PA-C ANESTHESIA: Spinal ESTIMATED BLOOD LOSS: 0 mL COMPLICATIONS: None SPECIMENS: None DRAINS: None PREOPERATIVE ANTIBIOTICS: Ancef 2 grams IMPLANTS: 1. J&J Attune #6 posterior stabilized femur 2. # 7 fixed-bearing tibia 3. #6 posterior stabilized, 7 mm fixed-bearing polyethylene 4. 38 patella INDICATIONS: The patient is a 56-year-old with a longstanding history of severe, unrelenting right knee pain secondary to end-stage (grade IV) right knee osteoarthritis. Despite appropriate nonoperative management, including activity modification, anti-inflammatories, [id number] pain medication, bracing, physical therapy, and injections they continue to have pain and disability. Operative intervention was offered. The risks, benefits and expected outcomes were discussed in detail. These included but were not limited to: Infection, bleeding, injury to blood vessel or nerve, venous thromboembolism. All questions were answered to their satisfaction. Use of an hospital aides and assistants teacher was necessary throughout the case for patient positioning and safety, soft tissue retraction, and closure. PROCEDURE: Spinal anesthesia was administered. The patient was placed supine on the operating table. The hospital aides and assistants teacher made sure the patient was positioned appropriately. The lower extremity was prepped and draped in the usual sterile fashion. The limb was exsanguinated with the Jose Francisco bandage. The pneumatic tourniquet was inflated to 300 mmHg. A standard anterior incision was made with the knee in flexion. Subcutaneous dissection was sharply taken through fascial layer #1. Full-thickness medial and lateral flaps were elevated. The hospital aides and assistants teacher retracted the soft tissues and protected them throughout the case. A standard medial parapatellar approach was made. The patella was everted. The infrapatellar fat pad was preserved. The menisci and cruciate ligaments were sharply d?brided. Marginal osteophytes were d?brided with the rongeur. The drill was used to penetrate the femoral canal. The canal was aspirated and irrigated with pulse lavage. The intramedullary femoral guide was placed for a 5-degree valgus cut, removing 10 mm off the distal femur. The saw was used to make the cut. Whitesides line and the trans epicondylar axis were marked. The femoral sizing guide was pinned onto the distal femur. Three degrees of external rotation nicely parallels the transepicondylar axis. Pins were placed for posterior referencing. The four-in-one cutting guide was pinned onto the distal femur. The anterior, posterior, and chamfer cuts were made. The hospital aides and assistants teacher protected the collateral ligaments. The box cutting guide was pinned. The box cuts were made. The boxed trial was placed and was an excellent fit. Drill holes for the lugs were made. Attention was then turned to the proximal tibia. The extramedullary tibial guide was placed for a neutral varus/valgus cut with 5 degrees of posterior slope, removing 2 mm based off the medial tibial surface. The hospital aides and assistants teacher protected the collateral ligaments and the neurovascular bundle. The saw was used to make the cut. Trial components were placed. The knee was nicely balanced in both flexion and extension. The trial components were removed. The tray was placed in appropriate rotation, parallel to our tibial cutting pins. It was pinned by the hospital aides and assistants teacher and the drill and the punch were used. The tray was removed. The punch was used again. We placed a bone plug in the femoral canal. Attention was then turned to the patella. [place] patellar thickness was 24 mm. The lobster claw resection guide was used with the 9.5 mm devan. The saw was u sed to make the cut. Drill holes were made by the hospital aides and assistants teacher. The trial was placed and was an excellent fit. Cancellous surfaces were irrigated with pulse lavage and thoroughly dried by the hospital aides and assistants teacher. We cemented the tibial component, then the femoral component. We impacted the 7 mm polyethylene onto the tibial tray. The knee was brought into full extension. We then cemented the patellar component. Excessive cement was removed. The cement was allowed to harden. The knee was taken through a range of motion and was found to be nicely balanced in both flexion and extension. The patella tracks centrally. The hospital aides and assistants teacher did a three minute dilute Betadine solution soak. The hospital aides and assistants teacher irrigated the wound with 3 liters of normal saline via pulse lavage. The hospital aides and assistants teacher reapproximated the extensor mechanism with #1 Vicryl in an interrupted [id number] fashion. The hospital aides and assistants teacher then ran the extensor mechanism with a #1 PDO Stratafix. The hospital aides and assistants teacher closed the subcutaneous tissues with a 3-0 Stratafix and the skin with a running 3-0 Stratafix in a subcuticular fashion. Glue was used to seal the skin. The hospital aides and assistants teacher placed a dry dressing, ANNIE stocking, and Polar Care. Sponge and needle counts were correct x2. The patient tolerated the procedure well. There were no apparent complications. They were carefully transferred to the hospital bed and taken to the postanesthesia care unit in satisfactory condition. PLAN: The patient will be mobilized with physical therapy. Aspirin will be used for DVT prophylaxis. They will be discharged to home once medically appropriate.
[2022-09-10] MEDS: LACTATED RINGERS 1000 ML 1,000 ML 100 ML IV (10:00)
--- NOTE | 2022-09-10 10:16 | W.PM.NB ---
Nerve Block Nerve Block Time Seen by Provider: 08:21 Date Seen: 09/10/22 Type of block requested by surgeon for post-operative analgesia: adductor canal Side: right Time out performed: Yes Verification of patient name: Yes Verification of date of : Yes Site marking: site marked Name of person performing procedure: Alejandro Continuous monitoring Was continuous monitoring of O2 sat, B/P, director of cardiac cath lab, recorded every 15 minutes?: Yes Procedure Checklist: sterile prep, needles and gloves Ultrasound guided. Images saved: Yes Medications given in 5ml increments after negative aspiration: Ropivicaine %: 0.5 mL: 20 Needle gauge: 20 Decadron (mg): 10 Precedex (mcg): 25 Patient tolerated procedure well: Yes Additional comments: Needle noted adjacent to nerve Block Charges Block Charge (with Pro Fee): Femoral Nerve Use of Ultrasound Machine for Block: Yes- US Guidance/pain block
--- NOTE | 2022-09-10 10:17 | P.NB_ITS ---
Nerve Block Nerve Block Time Seen by Provider: 08:21 Date Seen: 09/10/22 Type of block requested by surgeon for post-operative analgesia: geniculars Side: right Time out performed: Yes Verification of patient name: Yes Verification of date of : Yes Site marking: site marked Name of person performing procedure: Alejandro Continuous monitoring Was continuous monitoring of O2 sat, B/P, ethanol maintenance mechanic, recorded every 15 minutes?: Yes Procedure Checklist: sterile prep, needles and gloves Medications given in 5ml increments after negative aspiration: Ropivicaine %: 0.5 mL: 9 Needle gauge: 25 Patient tolerated procedure well: Yes Block Charges Block Charge (with Pro Fee): Genicular Nerve Block Use of Ultrasound Machine for Block: No
--- NOTE | 2022-09-10 10:45 | W.ANESCHARGE ---
Anesthesia Charges Start Date/Time Anesthesia Start Date: 09/10/22 Anesthesia Start Time: 08:31 Stop Date/Time Anesthesia Stop Date: 09/10/22 Anesthesia Stop Time: 10:45 Summary Emergency: No
--- NOTE | 2022-09-10 11:22 | W.ANESCHARGE ---
Anesthesia Charges Start Date/Time Anesthesia Start Date: 09/10/22 Anesthesia Start Time: 08:31 Stop Date/Time Anesthesia Stop Date: 09/10/22 Anesthesia Stop Time: 10:45 Summary Emergency: No
[2022-09-10] MEDS: OXYCODONE 5 MG TABLET PO (14:25)
[2022-09-10] MEDS: CEFAZOLIN 2 GM in 0.9 % SODIUM CHLORIDE Mini-bag 100 ML IVPB ×2 (14:26→22:48)
--- NOTE | 2022-09-10 14:58 | P.IMCN_ITS ---
Date of Consult Consult date: 09/10/22 Requesting Physician: Orthopedics Primary Care Provider: Caitlyn Aguayo, MANUFACTURING CHIEF ENGINEER, TARP REPAIRER Consult Narrative Reason for consult: Medical management after surgery Narrative: Edd Mccauley is a 56 year old male seen following right total knee arthroplasty for management of medical problems. Patient underwent right total knee arthroplasty by Dr. Whipple today. There were no operative complications. He is seen at the request of Dr. Whipple for consultation of medical management. Patient reports doing well postoperatively. The block is still in effect so he is having no significant pain. Preoperatively he was doing well other than his knee pain. There were no significant issues identified on his preop physical examination. He has no other health concerns at this time. Review of Systems Narrative: Patient reports generally being well recently. Other than significant orthopedic problems with both knees and both shoulders he reports he is otherwise doing well. [facility] Medical History (Updated 09/10/22 @ 15:06 by Hamzah Wright MD) Diverticulitis Hematuria, microscopic Hepatic lesion History of COVID-19 Non Hodgkin's lymphoma Surgical History (Updated 09/10/22 @ 15:06 by Hamzah Wright MD) History of colonoscopy History of mandibular surgery History of neck surgery History of surgical removal of ganglion cyst Family History Mother Diverticulitis Diabetes Father Alcohol dependence Heart disease Coronary artery disease Social History (Updated 09/10/22 @ 15:02 by Hamzah Wright MD) Narrative: . 2 children. Alcohol, socially. He drinks approximately 3 beers per weekend. Nicotine dependence. He smokes 1 or 2 cigarettes per day. Marijuana use. Exercise, formal. 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 He is here with his . They live in [place]. They have 3 steps to get into the house from the garage. He can live on 1 level. is healthcare power of corporate associate attorney. Code status is full. Smoking Status: Current some day smoker What tobacco products do you use: cigarettes Years smoked: 50 Smoking quit date/years: >15 years ago Do you use any of these nicotine containing products: None Second hand tobacco smoke exposure: Yes How often do you have a drink containing alcohol: 2-4 times a month Alcohol type: beer How many standard drinks containing alcohol do you have on a typical day: 1 or 2 How often do you have six or more drinks on one occasion: Monthly AUDIT-C Alcohol total score: 4 Non-prescribed substance use: denies use Caffeine: Yes (3-4 cups/day) Little interest or pleasure in doing things: not at all Feeling down, depressed, or hopeless: not at all Meds Home Medications and Allergies Home Medications Medication Instructions Recorded Confirmed Type ibuprofen 200 mg capsule (Advil 400 mg PO Q8H 07/02/22 09/10/22 History Liqui-Gel) Home Medication Comments: Losartan 25 mg daily held today. Ibuprofen held recently. Allergies Allergy/AdvReac Type Severity Reaction Status Date / Time No Known Drug Allergies Allergy Verified 09/10/22 07:30 Exam Narrative: Exam Narrative: He is alert and appears in no distress. He gives his own history corroborated by his . Head is normal. Eyes normal. Oropharynx is normal. Neck is supple without mass or adenopathy. Respirations are clear to auscultation. Cardiovascular: S1, S2, regular rate and rhythm. No murmur gallop rub. Abdomen is soft without tenderness or mass. Extremities are normal. He has intact pulses and sensation. He moves feet and ankles bilaterally well. No edema. Const: Vital Signs, click to edit/add: Vital Signs - 24 hr 09/10/22 08:03 09/10/22 10:41 09/10/22 10:45 Temperature 98.2 F 97.4 F L Pulse Rate 63 68 64 Respiratory Rate 18 14 14 Blood Pressure 153/83 H 113/69 109/64 Pulse Oximetry 94 98 97 Oxygen Delivery Me thod Room Air Room Air 09/10/22 10:50 09/10/22 11:00 09/10/22 11:05 Temperature 97.6 F Pulse Rate 57 L 61 61 Respiratory Rate 16 15 14 Blood Pressure 101/62 106/56 L 114/65 Pulse Oximetry 98 98 97 Oxygen Delivery Me thod Room Air Room Air Room Air 09/10/22 10:55 09/10/22 11:10 Temperature Pulse Rate 62 63 Respiratory Rate 15 15 Blood Pressure 105/67 119/67 Pulse Oximetry 96 98 Oxygen Delivery Me thod Room Air Room Air Assessment and Plan Assessment and plan (1) Status post total knee replacement, right: Problem comment: Procedures uncomplicated. Postoperatively patient doing well. Anticipate routine management of pain. Routine therapy. Status: Acute (2) Hypertension: Problem comment: Resume losartan in a.m. Status: Acute (3) Osteoarthritis of knees, bilateral: Problem comment: Pending recovery from this surgery he anticipates left total knee arthroplasty Status: Acute (4) Nicotine dependence: Problem comment: Declines nicotine supplementation Status: Acute Plan 56-year-old male status post right knee arthroplasty doing well. Routine cares. Monitoring for complications. Anticipate discharge tomorrow. Total time spent is 35 minutes, 20 minutes in coordination of care and discussing with patient and ongoing evaluation management of significant degenerative joint disease and rehabilitation
--- NOTE | 2022-09-10 16:18 | PC.NURSE ---
Pt returned from PACU in his hospital bed with 2 staff members to room 259 at 11:15 am s/p RTKA with Dr. Whipple. Please see initial assessment from PACU and frequent post op VS. Pt received spinal anesthesia and advanced to regular diet. Oxycodone 5 mg prn for tightness & pressure in his right leg. Pt eval by Dr. Whipple and PT this afternoon. Pt ambulated to BR to void 700cc of clear yellow urine and walked to recliner. First dose of IV Ancef infused. IS 2500 times 4 w/excellent breath hold. Report to [facility] for evening shift. Pt plans to go home with his Kendra tomorrow after his OT and PT sessions. Eupneic and in NAD>
[2022-09-10] MEDS: ASPIRIN 81 MG TABLET EC PO (20:59)
[2022-09-10] MEDS: SENNOSIDES 1 TAB TABLET 2 TAB PO (20:59)
[2022-09-10] MEDS: 0.9 % SODIUM CHLORIDE 250 ml IV (22:48)
--- NOTE | 2022-09-10 23:18 | PC.NURSE ---
Shift note: A1, walker and Gb to and from bathroom. Tolerated pain very well, refused PRN medication. Dressing appears clean and dry. Cryo cuff on. Tolerated regular diet very well.
[2022-09-11] MEDS: OXYCODONE 5 MG TABLET PO ×2 (01:05→09:53)
[2022-09-11] MEDS: ACETAMINOPHEN 500 MG TABLET 1000 MG PO ×2 (02:52→09:52)
[2022-09-11 02:54] VITALS: BP 152/75; PULSE 76; RESP 18; TEMP 36.7; O2SAT 96
--- NOTE | 2022-09-11 05:10 | PC.NURSE ---
patient up with SBA walker and gait belt. surgical site c/d/i with Mepilex, pain well controlled with PRN meds, see EMAR. tolerating regular diet and saline locked.
[2022-09-11] MEDS: CEFAZOLIN 2 GM in 0.9 % SODIUM CHLORIDE Mini-bag 100 ML IVPB (06:36)
[2022-09-11 07:35] VITALS: BP 144/79; PULSE 65; PULSE 97; RESP 16; TEMP 36.4; O2SAT 97
[2022-09-11 07:40] LABS: Hematocrit 40.4 % (37.0-53.0); Hemoglobin* 13.5 gm/dL (13.5-17.5); Immature Granulocytes Pct Auto 0.6 %; Lymphocytes Percent Auto 10.2 % (20-44); Mean Corpuscular HGB Conc 33 gm/dL (32-36); Mean Corpuscular Hemoglobin 30 pg (26-34); Mean Corpuscular Volume 89 fL (80-100); Monocytes Percent Auto 6.5 % (0.0-11.0); Neutrophils Percent Auto 82.7 % (42.0-72.0); Platelet Count* 333 K/uL (140-440); Red Blood Count 4.52 m/uL (4.30-5.90); White Blood Count* 22.46 K/uL (4.50-11.00)
[2022-09-11 07:42] LABS: Slide Review Reflex No
[2022-09-11 07:56] LABS: Sodium* 139 mmol/L (135-149)
[2022-09-11 07:57] LABS: Potassium* 4.7 mmol/L (3.6-5.1)
[2022-09-11 07:58] LABS: INR 1.04 (0.91-1.10); Prothrombin Time 14.3 Seconds
[2022-09-11 08:00] LABS: Blood Urea Nitrogen* 22 mg/dL (7-30); Creatinine* 0.9 mg/dL (0.5-1.5); Est. Creatinine Clearance* 77.82; Estimated Glomerular Filt Rate 99 ml/min
--- NOTE | 2022-09-11 08:46 | PM.ORPN ---
Subjective Subjective Time Seen by Provider: 07:30 Date Seen: 09/11/22 Principal diagnosis: Status post right knee replacement Interval history: Edd is comfortable this morning. He will discharge to home later today. Ortho Exam Narrative Exam Narrative: Alert and oriented x3. Patient is in no acute distress. Converses without labored breathing. Hearing is grossly intact. Ambulates with a walker. Examination of the right knee shows the dressing is intact. Mild effusion. Mild soft tissue edema about the right knee. No ecchymosis. No sign of infection. No erythema. Good quad function on the right. CMS intact right lower extremity. Const Vital Signs, click to edit/add: Vital Signs - 24 hr 09/10/22 10:41 09/10/22 10:45 09/10/22 10:50 Temperature 97.4 F L Pulse Rate 68 64 57 L Pulse Rate [Pulse Oximeter] Pulse Rate [Right Radial] Respiratory Rate 14 14 16 Blood Pressure 113/69 109/64 101/62 Blood Pressure [Left Arm] Pulse Oximetry 98 97 98 Oxygen Delivery Method Room Air Room Air Room Air 09/10/22 11:00 09/10/22 11:05 09/10/22 10:55 Temperature 97.6 F Pulse Rate 61 61 62 Pulse Rate [Pulse Oximeter] Pulse Rate [Right Radial] Respiratory Rate 15 14 15 Blood Pressure 106/56 L 114/65 105/67 Blood Pressure [Left Arm] Pulse Oximetry 98 97 96 Oxygen Delivery Method Room Air Room Air Room Air 09/10/22 11:10 09/10/22 14:00 09/10/22 11:15 Temperature Pulse Rate 63 48 L Pulse Rate [Pulse Oximeter] Pulse Rate [Right Radial] Respiratory Rate 15 14 Blood Pressure 119/67 Blood Pressure [Left Arm] 111/62 Pulse Oximetry 98 97 Oxygen Delivery Method Room Air Room Air 09/10/22 11:30 09/10/22 11:45 09/10/22 12:00 Temperature 97.2 F L Pulse Rate Pulse Rate [Pulse Oximeter] Pulse Rate [Right Radial] 48 L 45 L 50 L Respiratory Rate 14 16 16 Blood Pressure Blood Pressure [Left Arm] 99/62 129/72 134/75 Pulse Oximetry 98 99 Oxygen Delivery Method Room Air Room Air Room Air 09/10/22 12:15 09/10/22 12:30 09/10/22 13:00 Temperature Pulse Rate Pulse Rate [Pulse Oximeter] Pulse Rate [Right Radial] 52 L 50 L 61 Respiratory Rate 16 16 16 Blood Pressure Blood Pressure [Left Arm] 129/50 L 138/73 156/84 H Pulse Oximetry 99 99 98 Oxygen Delivery Method Room Air Room Air Room Air 09/10/22 15:00 09/10/22 15:00 09/10/22 15:00 Temperature 98.1 F Pulse Rate Pulse Rate [Pulse Oximeter] Pulse Rate [Right Radial] 76 76 Respiratory Rate 16 16 Blood Pressure Blood Pressure [Left Arm] 146/89 H 136/90 H Pulse Oximetry 98 97 94 Oxygen Delivery Method Room Air Room Air 09/10/22 15:00 09/10/22 19:00 09/10/22 23:00 Temperature 97.7 F 97.8 F Pulse Rate Pulse Rate [Pulse Oximeter] Pulse Rate [Right Radial] 81 82 Respiratory Rate 18 18 Blood Pressure Blood Pressure [Left Arm] 153/76 H 158/77 H Pulse Oximetry 94 93 93 Oxygen Delivery Method Room Air Room Air 09/10/22 23:00 09/11/22 02:54 Temperature 97.8 F 98.1 F Pulse Rate Pulse Rate [Pulse Oximeter] 76 Pulse Rate [Right Radial] 80 Respiratory Rate 18 18 Blood Pressure Blood Pressure [Left Arm] 159/80 H 152/75 H Pulse Oximetry 95 96 Oxygen Delivery Method Room Air Room Air Assessment and Plan Assessment and plan (1) Status post total knee replacement, right: Problem details: Date of surgery 09/10/2022 Status: Acute Assessment and Plan: Plan for discharge is today to home if they meet discharge criteria. DVT prophylaxis includes aspirin 81 mg twice daily x1 month, Jg stockings x1 month may remove for 1 hr per day, frequent ambulation Remove dressing in 1 week. Observe wound and phone Orthopedics with any questions or concerns Return to clinic in 1 week for a wound check Return to clinic in [address] Whipple Minimize narcotic use. Wean off and discontinue soon as possible. Activities as tolerated. No strenuous activity. Outpatient physical therapy as scheduled. Ice and elevate the operative extremity. No restriction on ice. (2) Hypertension: Problem details: Resume losartan in a.m. Status: Acute (3) Osteoarthritis of knees, bilateral: Problem details: Pending recovery from this surgery he anticipates left total knee arthroplasty Status: Acute (4) Nicotine dependence: Problem details: Declines nicotine supplementation Status: Acute
[2022-09-11] MEDS: CELECOXIB 200 MG CAPSULE PO (09:53)
[2022-09-11] MEDS: LOSARTAN POTASSIUM 50 MG TABLET 25 MG PO (09:54)
[2022-09-11] MEDS: ASPIRIN 81 MG TABLET EC PO (09:54)
[2022-09-11] MEDS: SENNOSIDES 1 TAB TABLET 2 TAB PO (09:55)
--- NOTE | 2022-09-11 10:20 | PC.SOCIAL ---
Addendum entered by LENIN Robles 09/11/22 16:45: Drawing Kiln Operator has reviewed and agreeswith this note. Original Note: Discharge plan: Social work met with pt. today to discuss discharge plan. Pt. says that his will be at home to care for him as needed. Pt.'s needs are all accessible on one level of home, and pt. feels comfortable scaling three steps into home. Pt. has no concerns at this time. Pt. is aware that he can reach out to hospital with any future concerns.
[2022-09-11 10:56] VITALS: BP 119/67; PULSE 48; RESP 18; TEMP 36.7
--- NOTE | 2022-09-11 11:59 | PC.NURSE ---
ALANNA note: Pt doing well POD #1. Eval by Kerry irene PA, PT and OT evaluations completed. Please see eMar for medications provided on day shift. IV site discontinued. Pt & Kendra verbalized understanding of discharge diagnosis, home meds, pain management plan, f/up appt and sx to report urgently. Pt discharged via w/c to own home with all personal belongings at 11:52 am with as transportation. Outpatient rehab planned at [facility].
== END 2022-09-11 11:52 | disposition home or self-care (01) ==
LOC: OR 07:11 → MEDSURG 07:26
PROVIDERS: PCP Nurse Practitioner Family; Visit Provider Orthopaedic Surgery
PROC: (CPT 27447; principal; 2022-09-10 09:00)
DX: M17.0 Bilateral primary osteoarthritis of knee (principal); M25.561 Pain in right knee; I10 Essential (primary) hypertension; F17.210 Nicotine dependence, cigarettes, uncomplicated
CPT/HCPCS: 27447; 01402; 36415; 64447; 64454; 73560; 76942; 82565; 84132; 84295; 84520; 85025; 85610; 97110; 97116; 97161; 97165; 97530; A9270; C1776; J0690; J1100; J2250; J2370; J2405; J2704; J2795; J3010; J7050; J7120

== ENCOUNTER 2022-10-25 13:26 | Outpatient (CLI) | payer OTHER, SELFPAY ==
[2022-10-25 15:39] LABS: Basophils Percent Auto 0.6 % (0.0-3.0); Eosinophils Percent Auto 1.4 % (0.0-7.0); Hematocrit 42.5 % (37.0-53.0); Hemoglobin* 14.1 gm/dL (13.5-17.5); Immature Granulocytes Pct Auto 0.5 %; Mean Corpuscular HGB Conc 33 gm/dL (32-36); Mean Corpuscular Hemoglobin 30 pg (26-34); Mean Corpuscular Volume 91 fL (80-100); Monocytes Percent Auto 5.5 % (0.0-11.0); Platelet Count* 350 K/uL (140-440); RDW Coefficient of Variation % 12.8 % (11.5-15.5); Red Blood Count 4.69 m/uL (4.30-5.90); White Blood Count* 13.26 K/uL (4.50-11.00)
[2022-10-25 15:42] LABS: Slide Review Reflex No
[2022-10-25 16:11] LABS: SARS PCR* Negative SARS-CoV-2 (Negative)
[2022-10-25 16:12] LABS: Chloride* 106 mmol/L (96-114); Potassium* 4.2 mmol/L (3.6-5.1); Sodium* 139 mmol/L (135-149)
[2022-10-25 16:14] LABS: Creatinine* 0.9 mg/dL (0.5-1.5); Estimated Glomerular Filt Rate 98 ml/min
[2022-10-25 16:15] LABS: Blood Urea Nitrogen* 18 mg/dL (7-30); Calcium* 9.7 mg/dL (8.4-10.6); Carbon Dioxide* 23 mmol/L (20-32); Glucose* 122 mg/dL (60-115)
== END 2022-10-25 13:27 | disposition home or self-care (01) ==
PROVIDERS: PCP Nurse Practitioner Family; Visit Provider Nurse Practitioner Family
DX: Z20.822 Contact with and (suspected) exposure to COVID-19 (principal); Z01.818 Encounter for other preprocedural examination
CPT/HCPCS: 80048; 85025; 87635

== ENCOUNTER 2022-10-28 08:57 | Day surgery (SDC) | payer OTHER, SELFPAY ==
[2022-10-28] VITALS (23 sets, daily range): BP systolic 101–158; BP diastolic 64–83; PULSE 52–93; RESP 16–18; TEMP 36.4–36.9; O2SAT 95–100
[2022-10-28] MEDS: LACTATED RINGERS 1000 ML 1,000 ML 100 ML IV ×2 (09:00→13:26)
[2022-10-28] MEDS: ACETAMINOPHEN 500 MG TABLET 1000 MG PO ×3 (09:29→20:53)
[2022-10-28] MEDS: CELECOXIB 200 MG CAPSULE PO ×2 (09:30→20:53)
[2022-10-28] MEDS: OXYCODONE (CR) 10 MG TAB.ER.12H PO (09:30)
[2022-10-28] MEDS: SODIUM CHLORIDE 0.9 % (FLUSH) 10 ML SYRINGE IVF (09:30)
[2022-10-28] MEDS: fentaNYL 100 MCG/2 ML inj IVP (10:25)
[2022-10-28] MEDS: MIDAZOLAM HCL 1 MG/ML inj IVP (10:25)
--- NOTE | 2022-10-28 10:28 | P.NB_ITS ---
Nerve Block Nerve Block Time Seen by Provider: 10:25 Date Seen: 10/28/22 Type of block requested by surgeon for post-operative analgesia: geniculars Side: left Time out performed: Yes Verification of patient name: Yes Verification of date of : Yes Site marking: site marked Name of person performing procedure: Alejandro Continuous monitoring Was continuous monitoring of O2 sat, B/P, quality assurance monitor, recorded every 15 minutes?: Yes Procedure Checklist: sterile prep, needles and gloves Medications given in 5ml increments after negative aspiration: Ropivicaine %: 0.5 mL: 9 Needle gauge: 25 Patient tolerated procedure well: Yes Block Charges Block Charge (with Pro Fee): Genicular Nerve Block Use of Ultrasound Machine for Block: No
--- NOTE | 2022-10-28 10:28 | W.PM.NB ---
Nerve Block Nerve Block Time Seen by Provider: 10:25 Date Seen: 10/28/22 Type of block requested by surgeon for post-operative analgesia: adductor canal Side: left Time out performed: Yes Verification of patient name: Yes Verification of date of : Yes Site marking: site marked Name of person performing procedure: Alejandro Continuous monitoring Was continuous monitoring of O2 sat, B/P, playground monitor, recorded every 15 minutes?: Yes Procedure Checklist: sterile prep, needles and gloves Ultrasound guided. Images saved: Yes Medications given in 5ml increments after negative aspiration: Ropivicaine %: 0.5 mL: 20 Needle gauge: 20 Decadron (mg): 10 Precedex (mcg): 25 Patient tolerated procedure well: Yes Additional comments: Needle noted adjacent to nerve Block Charges Block Charge (with Pro Fee): Femoral Nerve Use of Ultrasound Machine for Block: Yes- US Guidance/pain block
--- NOTE | 2022-10-28 10:35 | SUR.PREOP ---
TIME?OUT:?1023 PT/RN/MDA?VERIFICATION?OF?SURGICAL?SITE Left Knee,?PROCEDURE Nerve Block,?AND?CONSENT OBTAINED?PRIOR?TO?INVASIVE?PROCEDURE.
[2022-10-28] MEDS: CEFAZOLIN 2 GM INJ IVP (10:52)
--- NOTE | 2022-10-28 11:19 | W.ANESCHARGE ---
Anesthesia Charges Start Date/Time Anesthesia Start Date: 10/28/22 Anesthesia Start Time: 10:43 Stop Date/Time Anesthesia Stop Date: 10/28/22 Anesthesia Stop Time: 12:54 Summary Emergency: No
--- NOTE | 2022-10-28 12:10 | CRLHL7_ITS ---
For Patients: As a result of the Century Cures Act, medical imaging exams and procedure reports are released immediately into your electronic medical record. You may view this report before your referring provider. If you have questions, please contact your health care provider. INDICATION: Follow up left knee arthroplasty. TECHNIQUE: Two portable postoperative images of the left knee. FINDINGS: Left knee arthroplasty. Patellar resurfacing. The components are adequately aligned and well seated. Air within the soft tissues and joint space related to the surgery. IMPRESSION: Postsurgical change from a left knee arthroplasty with patellar resurfacing. The components are adequately aligned and well seated. Dictated by Edd Serra MD @ 10/28/2022 2:07:11 PM (Electronically Signed)
--- NOTE | 2022-10-28 12:14 | P.ORPRC_ITS ---
Procedure Note Date of procedure: 10/28/22 Procedure: PREOPERATIVE DIAGNOSIS: Left knee osteoarthritis POSTOPERATIVE DIAGNOSIS: Left knee osteoarthritis NAME OF OPERATION: Left total knee arthroplasty SURGEON: Nik Whipple MD ASSOCIATE ENGINEER: Erika Solorzano PA-C, YAKELIN Marie ANESTHESIA: Spinal ESTIMATED BLOOD LOSS: 0 mL COMPLICATIONS: None SPECIMENS: None DRAINS: None PREOPERATIVE ANTIBIOTICS: Ancef 2 grams IMPLANTS: 1. J&J Attune # 7 posterior stabilized femur 2. # 7 fixed-bearing tibia 3. # 7 posterior stabilized, 5 mm fixed-bearing polyethylene 4. 38 patella INDICATIONS: The patient is a 57-year-old with a longstanding history of severe, unrelenting left knee pain secondary to end-stage (grade IV) left knee osteoarthritis. Despite appropriate nonoperative management, including activity modification, anti-inflammatories, tbil-drp-lrnduds pain medication, bracing, physical therapy, and injections they continue to have pain and disability. Operative intervention was offered. The risks, benefits and expected outcomes were discussed in detail. These included but were not limited to: Infection, bleeding, injury to blood vessel or nerve, venous thromboembolism. All questions were answered to their satisfaction. Use of an manufacturing assistant was necessary throughout the case for patient positioning and safety, soft tissue retraction, and closure. PROCEDURE: Spinal anesthesia was administered. The patient was placed supine on the operating table. The manufacturing assistant made sure the patient was positioned appropriately. The lower extremity was prepped and draped in the usual sterile fashion. The limb was exsanguinated with the [place] bandage. The pneumatic tourniquet was inflated to 300 mmHg. A standard anterior incision was made with the knee in flexion. Subcutaneous dissection was sharply taken through fascial layer #1. Full-thickness medial and lateral flaps were elevated. The manufacturing assistant retracted the soft tissues and protected them throughout the case. A standard medial parapatellar approach was made. The patella was everted. The infrapatellar fat pad was preserved. The menisci and cruciate ligaments were sharply d?brided. Marginal osteophytes were d?brided with the rongeur. The drill was used to penetrate the femoral canal. The canal was aspirated and irrigated with pulse lavage. The intramedullary femoral guide was placed for a 5-degree valgus cut, removing 12 mm off the distal femur. The saw was used to make the cut. Whitesides line and the trans epicondylar axis were marked. The femoral sizing guide was pinned onto the distal femur. Three degrees of external rotation nicely parallels the transepicondylar axis. Pins were placed for posterior referencing. The four-in-one cutting guide was pinned onto the distal femur. The anterior, posterior, and chamfer cuts were made. The manufacturing assistant protected the collateral ligaments. The box cutting guide was pinned. The box cuts were made. The boxed trial was placed and was an excellent fit. Drill holes for the lugs were made. Attention was then turned to the proximal tibia. The extramedullary tibial guide was placed for a neutral varus/valgus cut with 5 degrees of posterior slope, removing 4 mm based off the medial tibial surface. The manufacturing assistant protected the collateral ligaments and the neurovascular bundle. The saw was used to make the cut. Trial components were placed. The knee was nicely balanced in both flexion and extension. The trial components were removed. The tray was placed in appropriate rotation, parallel to our tibial cutting pins. It was pinned by the manufacturing assistant and the drill and the punch were used. The tray was removed. The punch was used again. We placed a bone plug in the femoral canal. Attention was then turned to the patella. [place] patellar thickness was 25 mm. The lobster claw resection guide was used with the 9.5 mm devan. The saw was used to make the cut. Drill holes were made by the manufacturing assistant. The trial was placed and was an excellent fit. Cancellous surfaces were irrigated with pulse lavage and thoroughly dried by the manufacturing assistant. We cemented the tibial component, then the femoral component. We impacted the 5 mm polyethylene onto the tibial tray. The knee was brought into full extension. We then cemented the patellar component. Excessive cement was removed. The cement was allowed to harden. The knee was taken through a range of motion and was found to be nicely balanced in both flexion and extension. The patella tracks centrally. The manufacturing assistant did a three minute dilute Betadine solution soak. The manufacturing assistant irrigated the wound with 3 liters of normal saline via pulse lavage. The manufacturing assistant reapproximated the extensor mechanism with #1 Vicryl in an interrupted oyllwy-cd-umcfi fashion. The manufacturing assistant then ran the extensor mechanism with a #1 PDO Stratafix. The manufacturing assistant closed the subcutaneous tissues with a 3-0 Stratafix and the skin with a running 3-0 Stratafix in a subcuticular fashion. Glue was used to seal the skin. The manufacturing assistant placed a dry dressing, ANNIE stocking, and Polar Care. Sponge and needle counts were correct x2. The patient tolerated the procedure well. There were no apparent complications. They were carefully transferred to the hospital bed and taken to the postanesthesia care unit in satisfactory condition. PLAN: The patient will be mobilized with physical therapy. Aspirin will be used for DVT prophylaxis. They will be discharged to home once medically appropriate.
--- NOTE | 2022-10-28 12:49 | W.ANESCHARGE ---
Anesthesia Charges Start Date/Time Anesthesia Start Date: 10/28/22 Anesthesia Start Time: 10:43 Stop Date/Time Anesthesia Stop Date: 10/28/22 Anesthesia Stop Time: 12:54 Summary Emergency: No
--- NOTE | 2022-10-28 13:01 | SUR.PHASEI ---
xray here for ap/lat left knee
--- NOTE | 2022-10-28 15:22 | PM.IMCN1 ---
Date of Consult Patient: [facility] Patient Consult date: 10/28/22 Requesting Physician: Orthopedics Primary Care Provider: Caitlyn Aguayo APRN, AUTO BODY TECHNICIAN Consult Narrative Reason for consult: medication management Narrative: Edd Mccauley is a 57 year old male who had a RTKA Sep 10, 2022 and underwent elective LTKA today. He is doing well postoperatively. Pain control is adequate and he denies any concerns or complaints. Review of Systems Status of ROS: Reports: 6 or more systems reviewed and unremarkable except as noted in History and below PFSH PFS Medical History Diverticulitis Hematuria, microscopic Hepatic lesion History of COVID-19 Hyperlipidemia Hypertension Non Hodgkin's lymphoma Surgical History (Updated 10/28/22 @ 15:43 by Claudette Chavez MD) History of colonoscopy History of mandibular surgery History of neck surgery History of surgical removal of ganglion cyst S/P total knee arthroplasty Status post total left knee replacement (10/28/22) Family History Mother Diverticulitis Diabetes Father Alcohol dependence Heart disease Coronary artery disease Social History (Updated 10/28/22 @ 15:37 by Claudette Chavez MD) Narrative: . 2 children. Alcohol, socially. He drinks approximately 3 beers per weekend. Nicotine dependence. The patient reports he quit smoking in September 2022 before his RTKA. Marijuana use, occassionally last used middle of summer last. Exercise, formal. 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 He is here with his . They live in [place]. They have 3 steps to get into the house from the garage. He can live on 1 level. is healthcare power of corporate attorney. Code status is full. Smoking Status: Former smoker What tobacco products do you use: cigarettes Years smoked: 50 Smoking quit date/years: <= 15 years ago Do you use any of these nicotine containing products: None Nicotine containing products detail: quit smoking after 09/10/22 surgery Second hand tobacco smoke exposure: Yes How often do you have a drink containing alcohol: 2-4 times a month Alcohol type: beer How many standard drinks containing alcohol do you have on a typical day: 1 or 2 How often do you have six or more drinks on one occasion: Monthly AUDIT-C Alcohol total score: 4 Non-prescribed substance use: denies use Caffeine: Yes (3-4 cups/day cofee) Little interest or pleasure in doing things: not at all Feeling down, depressed, or hopeless: not at all Meds Home Medications and Allergies Home Medications Medication Instructions Recorded Confirmed Type losartan 25 mg tablet 25 mg PO DAILY 10/15/22 10/28/22 History Allergies Allergy/AdvReac Type Severity Reaction Status Date / Time No Known Drug Allergies Allergy Verified 10/28/22 09:07 Exam Narrative: Exam Narrative: General: No acute distress. Awake alert oriented x3. HEENT: Normocephalic atraumatic, pupils equally round and reactive to light and accommodation. Oropharynx clear. Mucous membranes are moist. No JVD. Cardiovascular: Regular rate and rhythm. No murmurs, gallops, or rubs. Chest: No increased work of breathing. Clear to auscultation bilaterally. No crackles or wheezes. Abdomen: Bowel sounds present. Soft, nondistended, nontender. No hepatosplenomegaly or masses. Extremities: Right total knee arthroplasty scar is already well-healed. Left knee bandage is clean, dry, and intact. Skin: No jaundice, no pallor, no rashes. Const: Vital Signs, click to edit/add: Vital Signs - 24 hr 10/28/22 09:12 10/28/22 10:20 10/28/22 10:25 Temperature 98.5 F Pulse Rate 76 72 68 Respiratory Rate 16 16 16 Blood Pressure 138/79 130/78 125/75 Pulse Oximetry 99 100 100 Oxygen Delivery Me thod Room Air Room Air Room Air Oxygen Flow Rate 2 2 10/28/22 10:30 10/28/22 12:48 10/28/22 12:55 Temperature 97.6 F Pulse Rate 65 73 60 Respiratory Rate 16 16 16 Blood Pressure 122/72 102/66 104/66 Pulse Oximetry 100 95 95 Oxygen Delivery Me thod Room Air Room Air Room Air Oxygen Flow Rate 2 10/28/22 13:00 10/28/22 13:05 10/28/22 13:10 Temperature Pulse Rate 64 58 L 68 Respiratory Rate 16 16 16 Blood Pressure 101/64 102/70 107/67 Pulse Oximetry 96 97 97 Oxygen Delivery Me thod Room Air Room Air Room Air Oxygen Flow Rate 2 2 10/28/22 13:15 10/28/22 13:20 10/28/22 13:25 Temperature Pulse Rate 63 60 60 Respiratory Rate 16 16 16 Blood Pressure 110/71 113/70 108/68 Pulse Oximetry 97 97 97 Oxygen Delivery Me thod Room Air Room Air Room Air Oxygen Flow Rate Labs Labs: Ordering Physician: Nik Whipple M.D. Date of Service: 10/28/22 Procedure(s): XR knee LT 2V Accession Number(s): [id number] cc: Nik Whipple M.D.; Cailtyn Aguayo APRN, AUTO BODY TECHNICIAN~ For Patients: As a result of the Cures Act, medical imaging exams and procedure reports are released immediately into your electronic medical record. You may view this report before your referring provider. If you have questions, please contact your health care provider. INDICATION: Follow up left knee arthroplasty. TECHNIQUE: Two portable postoperative images of the left knee. FINDINGS: Left knee arthroplasty. Patellar resurfacing. The components are adequately aligned and well seated. Air within the soft tissues and joint space related to the surgery. IMPRESSION: Postsurgical change from a left knee arthroplasty with patellar resurfacing. The components are adequately aligned and well seated. Dictated by Edd Serra MD @ 10/28/2022 2:07:11 PM (Electronically Signed) Assessment and Plan Assessment and plan (1) Status post total left knee replacement: Problem comment: left TKA (10/28/2022, Dr. Whipple) VTE prophylaxis with ASA 81mg BID Status: Acute (2) Status post total knee replacement, right: Problem comment: 09/10/2022, Dr. Whipple Status: Acute (3) Hyperlipidemia: Problem comment: not on medication, declined Status: Acute (4) Hypertension: Problem comment: Resume losartan 10/30/22. Status: Acute (5) Nicotine dependence: Problem comment: Declined nicotine supplementation - Quit Sep 09, 2022 Status: Acute
[2022-10-28] MEDS: LACTATED RINGERS 1000 ML 1,000 ML 75 ML IV (15:38)
[2022-10-28] MEDS: HYDROmorphone 0.5 mg/0.5 ml inj IVP ×2 (16:20→20:52)
[2022-10-28] MEDS: OXYCODONE 5 MG TABLET PO ×3 (17:06→20:52)
[2022-10-28] MEDS: CEFAZOLIN 2 GM in 0.9 % SODIUM CHLORIDE Mini-bag 100 ML IVPB (17:11)
--- NOTE | 2022-10-28 18:42 | PC.NURSE ---
Pt. up to floor at 1330, at bedside. Pt. is alert and oriented x4, pleasant and cooperative. Pt. denied N/V/SOB. Pt's Dressing to Left knee C/D/I. Cryo cuff to op site, bilateral plexi pulses, bilateral teds on. Pt. uses IS independently. Pt. up to BR at 1530 voided 300cc. Pt. tolerating reg diet. IV in right wrist is SL. Pt. rated pain 6/10 later and PRN dilauded administered w/relief and PRN oxy. see eMAR.
[2022-10-28] MEDS: SENNOSIDES 1 TAB TABLET 2 TAB PO (20:52)
[2022-10-28] MEDS: ASPIRIN 81 MG TABLET EC PO (20:52)
[2022-10-29] MEDS: OXYCODONE 5 MG TABLET PO ×5 (00:07→09:43)
[2022-10-29] MEDS: LORazepam 0.5 MG TABLET PO ×2 (00:07→01:12)
[2022-10-29] MEDS: CEFAZOLIN 2 GM in 0.9 % SODIUM CHLORIDE Mini-bag 100 ML IVPB ×2 (00:08→08:56)
[2022-10-29] MEDS: ACETAMINOPHEN 500 MG TABLET 1000 MG PO ×2 (03:09→08:31)
[2022-10-29 03:11] VITALS: BP 155/105; PULSE 87; RESP 18; TEMP 36.6; O2SAT 95
--- NOTE | 2022-10-29 05:26 | PC.NURSE ---
[id number]: Patient pleasant and cooperative. Pain controlled with PRN medication. CMS intact. A1/walker/GB. Dressing to L.knee C/D/I. Cryocuff to op site. Denies N/V. Eating and voiding.
[2022-10-29 06:59] LABS: Basophils Percent Auto 0.1 % (0.0-3.0); Hematocrit 38.8 % (37.0-53.0); Hemoglobin* 12.8 gm/dL (13.5-17.5); Immature Granulocytes Pct Auto 0.4 %; Mean Corpuscular HGB Conc 33 gm/dL (32-36); Mean Corpuscular Hemoglobin 30 pg (26-34); Mean Corpuscular Volume 90 fL (80-100); Monocytes Percent Auto 7.2 % (0.0-11.0); Neutrophils Percent Auto 80.3 % (42.0-72.0); Platelet Count* 347 K/uL (140-440); Red Blood Count 4.32 m/uL (4.30-5.90); White Blood Count* 17.93 K/uL (4.50-11.00)
[2022-10-29 07:00] VITALS: BP 146/79; PULSE 66; RESP 18; TEMP 36.4; O2SAT 99
[2022-10-29 07:17] LABS: Slide Review Reflex No
[2022-10-29 07:21] LABS: Sodium* 138 mmol/L (135-149)
[2022-10-29 07:24] LABS: Blood Urea Nitrogen* 20 mg/dL (7-30); Creatinine* 0.9 mg/dL (0.5-1.5); Estimated Glomerular Filt Rate 98 ml/min; Potassium* 4.4 mmol/L (3.6-5.1)
[2022-10-29 07:33] LABS: INR 1.07 (0.91-1.10); Prothrombin Time 14.5 Seconds
[2022-10-29] MEDS: SENNOSIDES 1 TAB TABLET 2 TAB PO (08:31)
[2022-10-29] MEDS: CELECOXIB 200 MG CAPSULE PO (08:31)
[2022-10-29] MEDS: ASPIRIN 81 MG TABLET EC PO (08:31)
[2022-10-29 09:27] VITALS: BP 108/68; PULSE 61; RESP 18; TEMP 36.4
--- NOTE | 2022-10-29 10:49 | PM.ORPN ---
Subjective Subjective Time Seen by Provider: 07:30 Date Seen: 10/29/22 Principal diagnosis: status post left knee replacement. 10/28/2022 Interval history: Edd is comfortable this morning. He is having breakfast. He will discharge to home today. Ortho Exam Narrative Exam Narrative: Alert and oriented x3. Patient is in no acute distress. Converses without labored breathing. Hearing is grossly intact. Ambulates with a Walker. Examination of the left knee shows the dressing is intact. There is no erythema. Warmth. No sign of infection. Bilateral calves are soft and nontender. CMS is intact left lower extremity. Const Vital Signs, click to edit/add: Vital Signs - 24 hr 10/28/22 12:48 10/28/22 12:55 10/28/22 13:00 Temperature 97.6 F Pulse Rate 73 60 64 Pulse Rate [Right Pulse Oximeter] Respiratory Rate 16 16 16 Blood Pressure 102/66 104/66 101/64 Blood Pressure [Left Arm] Pulse Oximetry 95 95 96 Oxygen Delivery Method Room Air Room Air Room Air Oxygen Flow Rate 10/28/22 13:05 10/28/22 13:10 10/28/22 13:15 Temperature Pulse Rate 58 L 68 63 Pulse Rate [Right Pulse Oximeter] Respiratory Rate 16 16 16 Blood Pressure 102/70 107/67 110/71 Blood Pressure [Left Arm] Pulse Oximetry 97 97 97 Oxygen Delivery Method Room Air Room Air Room Air Oxygen Flow Rate 2 2 10/28/22 13:20 10/28/22 13:25 10/28/22 14:38 Temperature 98.1 F Pulse Rate 60 60 61 Pulse Rate [Right Pulse Oximeter] Respiratory Rate 16 16 18 Blood Pressure 113/70 108/68 Blood Pressure [Left Arm] 138/74 Pulse Oximetry 97 97 Oxygen Delivery Method Room Air Room Air Room Air Oxygen Flow Rate 10/28/22 13:35 10/28/22 15:00 10/28/22 15:00 Temperature 98.1 F Pulse Rate Pulse Rate [Right Pulse Oximeter] 55 L 64 Respiratory Rate 18 18 Blood Pressure Blood Pressure [Left Arm] 119/83 Pulse Oximetry 96 100 Oxygen Delivery Method Room Air Oxygen Flow Rate 10/28/22 14:00 10/28/22 14:15 10/28/22 14:30 Temperature 97.7 F 98.1 F 98.1 F Pulse Rate Pulse Rate [Right Pulse Oximeter] 52 L 58 L 53 L Respiratory Rate 18 18 18 Blood Pressure Blood Pressure [Left Arm] 129/74 118/83 131/78 Pulse Oximetry 97 97 99 Oxygen Delivery Method Room Air Room Air Room Air Oxygen Flow Rate 10/28/22 15:00 10/28/22 15:30 10/28/22 17:00 Temperature 98.1 F 98.1 F 98.1 F Pulse Rate Pulse Rate [Right Pulse Oximeter] 64 62 70 Respiratory Rate 18 18 18 Blood Pressure Blood Pressure [Left Arm] 133/76 136/78 151/80 H Pulse Oximetry 99 98 99 Oxygen Delivery Method Room Air Room Air Room Air Oxygen Flow Rate 10/28/22 18:00 10/28/22 19:30 10/28/22 23:00 Temperature 98.1 F 97.8 F 97.5 F L Pulse Rate Pulse Rate [Right Pulse Oximeter] 70 93 86 Respiratory Rate 18 18 18 Blood Pressure Blood Pressure [Left Arm] 147/79 H 144/81 H 158/83 H Pulse Oximetry 100 96 97 Oxygen Delivery Method Room Air Room Air Room Air Oxygen Flow Rate 10/28/22 23:00 10/29/22 03:11 10/29/22 07:00 Temperature 97.9 F Pulse Rate Pulse Rate [Right Pulse Oximeter] 87 Respiratory Rate 18 Blood Pressure Blood Pressure [Left Arm] 155/105 H Pulse Oximetry 97 95 99 Oxygen Delivery Method Room Air Oxygen Flow Rate 10/29/22 07:00 10/29/22 07:00 10/29/22 09:27 Temperature 97.6 F 97.6 F Pulse Rate 61 Pulse Rate [Right Pulse Oximeter] 66 66 Respiratory Rate 18 18 18 Blood Pressure 108/68 Blood Pressure [Left Arm] 146/79 H Pulse Oximetry 99 Oxygen Delivery Method Room Air Oxygen Flow Rate Assessment and Plan Assessment and plan (1) Status post total left knee replacement: Problem details: left TKA (10/28/2022, Dr. Whipple) VTE prophylaxis with ASA 81mg BID Status: Acute Assessment and Plan: Plan for discharge is today to home if they meet discharge criteria. DVT prophylaxis includes aspirin 81 mg twice daily x1 month, Jg stockings x1 month may remove for 1 hr per day, frequent ambulation Remove dressing in 1 week. Observe wound and phone Orthopedics with any questions or concerns Return to clinic in 1 week for a wound check Return to clinic in [address] Whipple Minimize narcotic use. Wean off and discontinue soon as possible. Activities as tolerated. No strenuous activity. Outpatient physical therapy as scheduled. Ice and elevate the operative extremity. No restriction on ice. (2) Status post total knee replacement, right: Problem details: 09/10/2022, Dr. Whipple Status: Acute (3) Hyperlipidemia: Problem details: not on medication, declined Status: Acute (4) Hypertension: Problem details: Resume losartan 10/30/22. Status: Acute (5) Nicotine dependence: Problem details: Declined nicotine supplementation - Quit Sep 09, 2022 Status: Acute
--- NOTE | 2022-10-29 11:36 | PC.NURSE ---
Discharge: Pt. is alert and oriented x4, pleasant and cooperative. Pt. denied N/V/SOB. Pt's Dressing to Left knee C/D/I. Cryo cuff to op site, bilateral plexi pulses, bilateral teds on. Pt. uses IS independently. Pt. tolerating reg diet. IV in right wrist removed intact. Pt. rated pain 4/10 PRN oxy administered w/relief. see eMAR. Pt. ambulating well w/Pt and OT. Discharged at 1110 to home via wheelchair accompanied by spouse. Pt. verbalized understanding of discharge instructions, forms signed.
== END 2022-10-29 11:10 | disposition home or self-care (01) ==
LOC: OR 08:58 → MEDSURG 09:00
PROVIDERS: PCP Nurse Practitioner Family; Visit Provider Orthopaedic Surgery
PROC: (CPT 27447; principal; 2022-10-28 11:00)
DX: M17.12 Unilateral primary osteoarthritis, left knee (principal); M25.562 Pain in left knee; I10 Essential (primary) hypertension; E78.5 Hyperlipidemia, unspecified; Z87.891 Personal history of nicotine dependence
CPT/HCPCS: 27447; 01402; 36415; 64447; 64454; 73560; 76942; 82565; 84132; 84295; 84520; 85025; 85610; 97116; 97161; 97165; A9270; C1776; J0690; J1100; J1170; J2250; J2704; J2795; J3010; J7120

== ENCOUNTER 2023-03-04 14:25 | Outpatient (RCR) | payer OTHER, SELFPAY | END 2023-07-02 23:59 | disposition home or self-care (01) | PROVIDERS: PCP Nurse Practitioner Family; Visit Provider Orthopaedic Surgery | DX: M19.011 Primary osteoarthritis, right shoulder (principal); Z96.611 Presence of right artificial shoulder joint; R26.2 Difficulty in walking, not elsewhere classified; Z51.89 Encounter for other specified aftercare | CPT/HCPCS: 97165; 97535 ==